=== PATIENT | male | born 1945 | race Caucasian/White ===

== ENCOUNTER 2016-11-11 07:21 | Observation (INO) | payer MEDICARE, MEDICAID ==
[~2016-11-11] VITALS: Ht 172.7 cm; Wt 78.7 kg
[2016-11-11] VITALS (9 sets, daily range): BP systolic 116–148; BP diastolic 62–75
[~2016-11-11 07:21] MED LIST: ALBUTEROL-200 PUFFS/ IH; BACTROBAN2% TP; CIPRO 500MG TA500 MG PO; CIPRO500 MG PO; CYCLOBENZAPRINE10 MG PO; D3-55000 IU PO; FLAGYL500 MG PO; FUROSEMIDE 20MG20 MG PO; HCTZ/LISINOPRIL1 TA3 PO; HYDROCHLOROTHIA50 MG PO; HYDROCODONE BI473 ML PO; KEFLEX 500MG.500 MG PO; KEPPRA 500 MG500 MG PO; LEVAQUIN500 MG PO; LIPITOR10 MG PO; LISINOPRIL 20MG20 MG PO; LISINOPRIL/HCTZ PO; LISINOPRIL/HCTZ1 TA3 PO; METFORMIN500 MG PO; MULTI VITAMINS1 TA1 PO; NORCO1 TAB PO; SEPTRA DS 800 M1 TAB PO; TAMSULOSIN HCL0.4 MG PO
[2016-11-11 07:59] LABS: BUN 21 mg/dL (7-18)
[2016-11-11 08:01] LABS: GFR (ESTIMATED) 46 ML/MIN (>60)
[2016-11-11 08:04] LABS: LYMPH # 2.7 K/mm3 (0.7-4.5); LYMPH % 23.4 % (10-50)
[2016-11-11 08:05] LABS: HEMOGLOBIN 13.8 g/dL (14.1-18.0)
--- NOTE | 2016-11-11 11:06 | HISTORY AND PHYSICAL REPORT ---
History and Physical Demographics Admission date: 11/11/16 Chief Complaint: History of CKD, s/p procedure with high contrast use, admit for IVF Primary Diagnosis: CAD RISK FACTORS, ABN CAMELIA Allergies: Coded Allergies: baclofen (Severe, SWELLING 11/11/16) History of present illness: 71 yo white male admitted post procedure (3 vessel CAD with multivessel stenting with ANGEL) with high amount of contrast used during the procedure. Patient has a history of chronic kidney disease and diabetes and is being admitted for IV fluids to protect the patient's kidney functions. Medical history Family history: Family Hx Insignificant No Immunization history: DT/Tetanus > 10 Years Ago Flu 2015-FSN Pneumonia Received In Past TB Test in last year No Other history: CAD? No Angina: No [place]: No Hypertension? Yes Hyperlipidemia? Yes CHF? No DVT? No PE? No COPD? No Asthma? No Anemia? No GERD? No Gastric ulcers? No GI Bleed? No Hernia? No Thyroid Problems? No Hypothyroidism? No CVA? No Seizures? Yes Diabetes? Yes Insulin Dependent: No Insulin Pump: No Home FSBS? No Renal Insuffiency? No UTI? No Stones? No BPH? Yes GB Disease: No Nephritic Syndrome? No Asplenia? No Hepatitis? No Sickle Cell Disease? No Arthritis? Yes Migraines? No Cataracts? Yes Glaucoma? No MRSA? No HIV? No TB? No Anxiety? No Depression? No Cancer? No Surgical history: Previous Surgery?Y SPINAL SURGERY CATARACTS R EYE SCAR TISSUE REMOVAL L EYE CATARACT TO LEFT Current home meds: Reported Medications Furosemide (Furosemide) 20 MG PO Q48H #30 TAB Glimepiride (Amaryl) 1 MG PO DAILY Atorvastatin Calcium (Lipitor 10MG) 20 MG PO QHS Cyclobenzaprine Hcl (Cyclobenzaprine 10MG) 10 MG PO BID Levetiracetam (Keppra 500 Mg Tablet) 500 MG PO BID Metformin HCL (Metformin) 1,000 MG PO BID CHOLECALCIFEROL (VITAMIN D3) (Vitamin D3) 1,000 IU PO DAILY MULTIVITAMIN (One Daily Multivitamin) 1 TAB PO DAILY MISCELLANEOUS (UNKNOWN MEDICATION) 1 AMANUEL TP 3 MONTHS Albuterol (Albuterol-Hfa Inhaler) 1 PUFF IH Q4HP PRN BREATHNING HYDROCODONE/ACETAMINOPHEN (Anderson 7.5-325 Tablet) 1 TAB PO Q8HP PRN SHOULDER PAIN LISINOPRIL/HYDROCHLOROTHIAZIDE (Lisinopril-Hctz 20-12.5 MG Tab) 1 TAB PO BID #60 TAMSULOSIN HCL (Tamsulosin HCl) 0.4 MG PO DAILY #30 Social history Smoking history: Tobacco Yes Type Cigarettes Packs/day 1 1/2 - 2 Packs Alcohol: Alcohol: No History of drug use: Drug Use? No Review of systems Constitutional: Positive for: weak. Cardiovascular: Positive for: BOLDEN. No: chest pain. Respiratory: Positive for: dyspnea on exertion. Mussculoskeletal: Positive for: extremity pain. Psychiatric: No: agitation, anxious. Physical exam: Lab data for last 24 hours: Laboratory Tests 11/11/16 0745: Sodium 138, Potassium 3.9, Chloride 102, Carbon Dioxide 29, BUN 21 H, Creatinine 1.5 H, Estimated GFR (MDRD) 46, Glucose 102, Calcium 9.2, WBC 11.7 H, RBC 4.12 L, Hgb 13.8 L, Hct 41.3 L, MCV 100.1 H, RDW 13.6, Plt Count 288, MPV 6.3 L, Gran % 67.3, Gran # 7.9, Lymphocytes % 23.4, Monocytes % 6.4, Eosinophils % 2.4, Basophils % 0.4, Lymphocytes # 2.7, Monocytes # 0.8, Eosinophils # 0.3, Basophils # 0.1, PUBS MCHC 33.4, MCH 33.4 H Addmission vital signs: 1ST Vital Signs Result Date Time Pulse Ox 99 11/11 0809 B/P 158/88 11/11 0809 Temp 97.6 11/11 0809 Pulse 84 11/11 0809 Resp 20 11/11 0809 O2 Delivery OXYGEN 11/11 1031 Exam: General appearance: alert, awake, no acute distress Cardiovascular: regular rate & rhythm Respiratory: clear to auscultation Extremities: moves all Neuro: alert, intact, oriented Assessment and Plan: Problem List 1. CAD (coronary artery disease) 2. Cardiomyopathy 3. PAD (peripheral artery disease) 4. CKD (chronic kidney disease) stage 3, GFR 30-59 ml/min 5. Diabetes 6. Hypertension 7. Hyperlipidemia 8. Tobacco dependence Plan: 1. Admit for IVF post procedure 2. Continue home meds and DAPT. 3. BMP in AM at 0810 Plan: 1. Admit for IVF post procedure 2. Continue home meds and DAPT. 3. BMP in AM
--- NOTE | 2016-11-11 11:19 | RADIOLOGY REPORT PS360 ---
CARDIAC CATHETERIZATION DATE OF CATHETERIZATION:11/11/2016 9:31 AM PROCEDURES: 1. Left heart catheterization 2. Left ventriculogram 3. Selective coronary angiogram 4. Drug-eluting stent deployment to the mid LAD 5. Drug-eluting stent deployment to the mid circumflex artery 6. Drug-eluting stent deployment to the mid and distal right coronary artery 7. Bilateral selective renal angiogram 8. Catheter placement in the left superficial femoral artery 9. Left superficial femoral artery angiography with runoff to the foot INDICATION FOR TEST: 1. Coronary artery disease 2. [place] class III claudication 3. Peripheral artery disease 4. Abnormal ankle-brachial index 0.6 left side 5. Chronic renal failure creatinine 1.5 6. Hypertension 7. High pretest likelihood for renal artery stenosis Informed consent was obtained prior to the procedure. COMPLICATIONS: None ESTIMATED BLOOD LOSS: Less than 10 ml. Clinical history: 71-year-old gentleman referred for evaluation of severe peripheral artery disease. Patient had a highly abnormal ankle-brachial index measured 0.6 on the left leg and was experiencing [place] class III claudication. Patient has been long-term diabetic and has smoked for nearly 60 years. Because of patient's significant claudication he is unable to perform any physical activity. He describes having significant shortness of breath with very little activity as well as having intermittent heaviness or discomfort in his chest which would come and go at rest without precipitation. Given patient's age diabetes tobacco usage abnormal ankle-brachial index the likelihood for severe coronary artery disease was quite high. A stress test would not be appropriate in this patient with such high pretest likelihood for coronary disease. Furthermore 0.6 ankle-brachial index portends a very high 5 year cardiovascular mortality. Because of the composite dilation of medical problems it was decided to proceed with coronary angiography prior to planned bilateral runoff. TECHNIQUE: One percent lidocaine was used to anesthetize the right groin. The right femoral artery was accessed via the Seldinger technique. A 4 [place] sheath was placed in the right femoral artery and over a 3 J-wire a JL 4 JR4 catheter were used to perform left heart catheterization left ventriculogram and selective coronary angiography. Following the diagnostic angiogram 60 mg of Effient was given orally on the table along with 7000 units of heparin intravenously. An E BU 3.75 guide catheter was placed in the left main artery and a BMW wire was used to traverse the stenosis in the mid LAD. 2.5 x 12 mm balloon was used to predilate the stenosis and a 2.5 x 18 mm resolute stent was deployed at 20 katerin in the mid LAD. Repeat angiography demonstrated there was significant disease distally therefore an additional 2.5 x 22 mm resolute stent was deployed at 16 katerin in the mid LAD. The balloon was brought back between the 2 stents and deployed at 22 katerin to mesh the 2 stents to gather. Following this the BMW wire was pulled back and placed into the circumflex artery are once again a 2 mm balloon was used to predilate the stenosis. Following this a 2.25 x 26 mm resolute stent was deployed in the proximal obtuse marginal artery extending into the mid segment at 20 katerin. Excellent angiographic results were obtained after the drug-eluting stent deployment. Following this the JR4 catheter was used to intubate the right coronary artery and a BMW wire was placed in the distal right coronary artery. Predilatation using a 2 mm x 30 mm balloon was used and deployed at 20 katerin in the mid right coronary artery into the distal segment. A 2.25 x 30 mm resolute stent was placed in the distal right coronary artery and deployed at 20 katerin. An additional 3 mm x 34 mm resolute stent was placed proximal to this yet still overlapping the first stent. This was deployed at 18 katerin. After the procedure there was still an area where the 2 stents met where post dilatation was required. Because of this tight lesion a 2 mm x 10 mm balloon was deployed at 22 katerin and then upsized to an additional 2.5 x 12 mm noncompliant balloon deployed at 24 katerin followed by a 2.75 x 12 mm noncompliant balloon deployed at 24 katerin. All of these noncompliant high inflation balloons still did not reduce the stenosis. Finally a 3 mm x 12 mm noncompliant balloon was taken at 24 katerin and after 1 minute the lesion finding the reduced during excellent angiographic results. The same balloon was then brought back and deployed at 24 katerin in the mid right coronary artery. The wire was removed and 800 mcg of intracoronary nitroglycerin was administered. Angiography demonstrated wide patency of the right coronary artery with excellent transitioning distally and proximally. SANTIAGO-3 flow was present in the LAD circumflex artery and right coronary artery before and after the procedure. Following this bilateral selective renal angiography was performed due to patient's hypertension chronic renal failure and severe three-vessel coronary artery disease combined with severe peripheral artery disease. Patient had a high pretest likelihood for renal artery stenosis therefore it was clinically appropriate to perform bilateral renal angiography at the time of this procedure. This JR4 catheter was used to selectively intubate each renal artery. The JR4 catheter was placed in the left common iliac artery and an advantage wire was advanced and fluoroscopic guidance into the left superficial femoral artery. The JR4 catheter was advanced into the proximal segment of the SFA. Patient was known to have a +2 femoral pulse in the left groin therefore the likelihood of significant iliofemoral disease was quite low and I was confident His disease was confined primarily to the superficial femoral artery. 16 cc of contrast was injected over 4 seconds performing left SFA angiography with runoff to the left foot. At the end of the procedure the apparatus was removed the groin was reprepped closure changed sheath was removed good hemostasis was achieved using Perclose device H was transferred to the postop holding area in stable condition with the closing ACT of 329 seconds ANGIOGRAPHIC RESULTS: 1. The left main artery has an ostial 20% nonflow limiting stenosis 2. The left anterior descending artery has proximal 10-20% stenoses followed by a focal 90% stenosis in the mid LAD segment followed by additional 50% stenoses. The first diagonal artery is a large vessel and has a mid vessel focal 70-80% stenosis 3. The circumflex artery appears to be a dominant vessel. The first 2 obtuse marginal arteries are small arteries and clinically insignificant. The third obtuse marginal artery has a proximal 90% stenosis followed by additional 50% mid vessel stenoses. The fourth obtuse marginal artery is a large vessel and is ostially occluded there are scant left to left collaterals distally 4. The right coronary artery is a nondominant yet still large vessel which has mid vessel complex 50-90% stenoses followed by an additional 80% calcified stenosis followed by additional distal 80% calcified stenoses 5. The SOUZA ventriculogram reveals mildly reduced ejection fraction estimated at 50%. There is an area of apical hypokinesis with small aneurysmal dilatation 6. The left ventricular end-diastolic pressure 10 mmHg 7. The left renal artery is singular and normal 8. The right renal artery singular and normal 9. The left iliofemoral artery was not angiographically evaluated however patient has bounding plus two left femoral pulses 10. The left profunda femoris artery is normal while the left superficial femoral artery is a small caliber vessel and has proximal 50% stenosis followed by a focal 90% stenosis followed by long mid vessel 70-80% complex stenoses as the SFA enters Ric's canal. The popliteal artery has mild atheromatous plaque and gives rise to the anterior tibialis artery and peroneal artery. Both arteries supply the foot while the left posterior tibialis artery is occluded. IMPRESSION: 1. Critical three-vessel coronary artery disease as described above 2. History of myocardial infarction involving the large fourth obtuse marginal artery off the dominant circumflex artery with chronic subtotal occlusion of the vessel 3. Successful stenting of the mid LAD critical disease reduced to 0% with 2 drug-eluting stents 4. Successful stenting of the proximal to mid third obtuse marginal artery off the dominant circumflex artery severe disease reduced to 0% with 1 drug-eluting stent 5. Successful stenting of the mid and distal large nondominant right coronary artery severe disease reduced to 0% with 2 drug-eluting stents 6. Normal renal arteries 7. Presumed patent left common iliac external iliac and left common femoral artery based on +2 pulses in the left femoral artery 8. Severe left superficial femoral artery disease with 2 vessel runoff below the knee from the anterior tibialis artery and peroneal artery with a chronically occluded posterior tibialis artery PLAN: 1. Effient and aspirin 2. LDL less than 70 3. Tobacco cessation 4. Tight control of diabetes 5. Patient has complex disease and underwent a complex intervention. Because of his end organ disease history of myocardial infarction chronic renal failure diabetes peripheral artery disease I believe this gentleman should be admitted to the hospital with close telemetry monitoring and IV fluids overnight in order to reduce contrast probably. 6. Chemistry panel will need to be checked in the morning 7. Patient will be brought back to [facility] in 2 weeks and will undergo left superficial femoral artery atherectomy for his [place] class III claudication
[2016-11-11] MEDS ORDERED: AMARYL1 M1 PO (15:27)
[2016-11-12] VITALS (9 sets, daily range): BP systolic 106–128; BP diastolic 51–73
--- NOTE | 2016-11-12 07:24 | PHARMACY CLINIC NOTE ---
Patient Demographics Patient Demographics Admission date: 11/11/16 Date: 11/12/16 Time: 07 Allergies Coded Allergies: baclofen (Severe, SWELLING 11/11/16) HEIGHT- FT: 5 IN: 8.00 K.671 VTE General Information Labs: Laboratory Tests 11/11 0745 Hematology Hgb (14.1 - 18.0 g/dL) 13.8 L Hct (42.0 - 52.0 %) 41.3 L Plt Count (142 - 424 K/mm3) 288 Disclaimer The following section includes nursing documentation that has been pulled in for pharmacy review. Patient's VTE score: 3 Patient's VTE Risk: LOW RISK VTE prophylaxis NQF [id number] VTE prophylaxis ordered? Yes Type of prophylaxis/treatment: EDDIE at 0723
--- NOTE | 2016-11-12 08:21 | ACUTE CARE PROGRESS NOTE (QUA) ---
Progress Notes Subjective Date 11/12/16 Time 0811 Note 71 yo WM in chair in NAD. No chest pains. Dr. Richard stopped by to see the patient. Objective Findings Last VS-Temp:97.7 B/P:125/73 Pulse:67 Resp:20 SaO2:97 ROOM AIR Last weight lbs:173 oz:7 K.671 Method:Bed Scales Exam General appearance: alert, awake, no acute distress Cardiovascular: regular rate & rhythm, extra beats Respiratory: clear to auscultation, good air movement Extremities: Bruising noted on arms and hands in various stages of healing. No LE edema. Neuro: alert, intact, oriented Reviewed: medications, vital signs, lab results Assessment/Plan Problem List 1. CAD (coronary artery disease) Assessment/Plan: No chest pains. Multivessel stenting yesterday with DAPT started. Qualifiers: Coronary Disease-Associated Artery/Lesion type: [place] artery [place] vs. transplanted heart: [place] heart Associated angina: with unstable angina Qualified Code: I25.110 - Atherosclerotic heart disease of [place] coronary artery with unstable angina pectoris 2. Cardiomyopathy Assessment/Plan: EF 50% with mild wall motion abnormality due to remote [place]. Qualifiers: Cardiomyopathy type: ischemic Qualified Code: I25.5 - Ischemic cardiomyopathy 3. PAD (peripheral artery disease) Assessment/Plan: Left SFA disease with plans for intervention in 2 wks. 4. CKD (chronic kidney disease) stage 3, GFR 30-59 ml/min 5. Hypertension Qualifiers: Hypertension type: essential hypertension Qualified Code: I10 - Essential ( primary) hypertension 6. Hyperlipidemia Qualifiers: Hyperlipidemia type: mixed hyperlipidemia Qualified Code: E78.2 - Mixed hyperlipidemia 7. Diabetes Qualifiers: Diabetes mellitus type: type 2 Diabetes mellitus complication status: with kidney complications Diabetes mellitus complication detail: with chronic kidney disease Diabetes mellitus senior care insulin use: without senior care use Chronic kidney disease stage: stage 3 (moderate) Qualified Code: E11.22 - Type 2 diabetes mellitus with diabetic chronic kidney disease Patient condition Stable Plan: Home meds plus ASA/Effient. F/U in one week. F/U up with Dr. Richard after PAD stenting. This inpt stay is expected to cross 2 MNs from start of care Yes at 0820
--- NOTE | 2016-11-12 08:21 | ACUTE CARE PROGRESS NOTE (QUA) ---
Progress Notes Subjective Date 11/12/16 Time 0811 Note 71 yo WM in chair in NAD. No chest pains. Dr. Richard stopped by to see the patient. Objective Findings Last VS-Temp:97.7 B/P:125/73 Pulse:67 Resp:20 SaO2:97 ROOM AIR Last weight lbs:173 oz:7 K.671 Method:Bed Scales Exam General appearance: alert, awake, no acute distress Cardiovascular: regular rate & rhythm, extra beats Respiratory: clear to auscultation, good air movement Extremities: Bruising noted on arms and hands in various stages of healing. No LE edema. Neuro: alert, intact, oriented Reviewed: medications, vital signs, lab results Assessment/Plan Problem List 1. CAD (coronary artery disease) Assessment/Plan: No chest pains. Multivessel stenting yesterday with DAPT started. Qualifiers: Coronary Disease-Associated Artery/Lesion type: [place] artery [place] vs. transplanted heart: [place] heart Associated angina: with unstable angina Qualified Code: I25.110 - Atherosclerotic heart disease of [place] coronary artery with unstable angina pectoris 2. Cardiomyopathy Assessment/Plan: EF 50% with mild wall motion abnormality due to remote [place]. Qualifiers: Cardiomyopathy type: ischemic Qualified Code: I25.5 - Ischemic cardiomyopathy 3. PAD (peripheral artery disease) Assessment/Plan: Left SFA disease with plans for intervention in 2 wks. 4. CKD (chronic kidney disease) stage 3, GFR 30-59 ml/min 5. Hypertension Qualifiers: Hypertension type: essential hypertension Qualified Code: I10 - Essential ( primary) hypertension 6. Hyperlipidemia Qualifiers: Hyperlipidemia type: mixed hyperlipidemia Qualified Code: E78.2 - Mixed hyperlipidemia 7. Diabetes Qualifiers: Diabetes mellitus type: type 2 Diabetes mellitus complication status: with kidney complications Diabetes mellitus complication detail: with chronic kidney disease Diabetes mellitus halfway insulin use: without halfway use Chronic kidney disease stage: stage 3 (moderate) Qualified Code: E11.22 - Type 2 diabetes mellitus with diabetic chronic kidney disease Patient condition Stable Plan: Home meds plus ASA/Effient. F/U in one week. F/U up with Dr. Richard after PAD stenting. This inpt stay is expected to cross 2 MNs from start of care Yes at 0820
--- NOTE | 2016-11-12 08:23 | DISCHARGE SUMMARY STANDARD ---
Demographics Admit date: 11/11/16 Discharge date: 11/12/16 History of present illness History of present illness 71 yo white male admitted post procedure (3 vessel CAD with multivessel stenting with ANGEL) with high amount of contrast used during the procedure. Patient has a history of chronic kidney disease and diabetes and is being admitted for IV fluids to protect the patient's kidney functions. Hospital Course Hospital Course: 81-year-old white male with coronary disease, peripheral artery disease, diabetes mellitus and chronic kidney disease was admitted post procedure due to high amount of contrast used during cardiac cath and stenting. Patient was given IV fluids overnight. He had complaints of chest pain or shortness of breath next morning. Renal status stable today. Patient will be discharged home on home medications plus she had the addition of Effient along with his aspirin. He will follow-up in one week for scheduling of his peripheral artery disease disease intervention in 2 weeks. Discharge diagnoses Problem List 1. CAD (coronary artery disease) 2. Cardiomyopathy 3. PAD (peripheral artery disease) 4. CKD (chronic kidney disease) stage 3, GFR 30-59 ml/min 5. Hypertension 6. Hyperlipidemia 7. Diabetes Medications Medications: Discharge meds are as noted. Follow up Follow up in office in: 4 DAYS with: Ron Love MD at 0838
[2016-11-12] MEDS ORDERED: LIPITOR40 M1 PO (08:30)
[2016-11-12] MEDS ORDERED: EFFIENT10 M2 PO (08:32)
[2016-11-30] MEDS ORDERED: ASPIRIN 81MG TA81 MG PO (04:01)
[2016-11-30] MEDS ORDERED: TRAMADOL 50MG T50 M1 PO (04:02)
[2016-11-30] MEDS ORDERED: KEFLEX 500MG.500 MG PO (08:52)
[2016-11-30] MEDS ORDERED: MIRALAX17 GM PO (08:52)
== END 2016-11-12 10:16 | disposition home or self-care (01) ==
LOC: CATHLAB 07:21 → 2ND 10:38 → CATHLAB 11-12 09:45 → 2ND 11-12 10:16
PROVIDERS: Internal Medicine
PROC: B2151ZZ Fluoroscopy of Left Heart using Low Osmolar Contrast (ICD-10-PCS; 2016-11-11)
PROC: 027236Z Dilation of Coronary Artery, Three Arteries with Three Drug-eluting Intraluminal Devices, Percutaneous Approach (ICD-10-PCS; 2016-11-11)
PROC: B4181ZZ Fluoroscopy of Bilateral Renal Arteries using Low Osmolar Contrast (ICD-10-PCS; 2016-11-11)
PROC: 047L3ZZ Dilation of Left Femoral Artery, Percutaneous Approach (ICD-10-PCS; 2016-11-11)
PROC: B41G1ZZ Fluoroscopy of Left Lower Extremity Arteries using Low Osmolar Contrast (ICD-10-PCS; 2016-11-11)
PROC: 4A023N7 Measurement of Cardiac Sampling and Pressure, Left Heart, Percutaneous Approach (ICD-10-PCS; principal; 2016-11-11 09:30)
PROC: B2111ZZ Fluoroscopy of Multiple Coronary Arteries using Low Osmolar Contrast (ICD-10-PCS; 2016-11-11 09:30)
DX: I25.110 Atherosclerotic heart disease of native coronary artery with unstable angina pectoris (principal); I70.212 Atherosclerosis of native arteries of extremities with intermittent claudication, left leg; I25.5 Ischemic cardiomyopathy; Z72.0 Tobacco use; I25.2 Old myocardial infarction; E11.22 Type 2 diabetes mellitus with diabetic chronic kidney disease; N18.3 Chronic kidney disease, stage 3 (moderate); E78.2 Mixed hyperlipidemia
CPT/HCPCS: C1725; C1760; C1769; C1876; C1894; G0378; J1644; Q9966; Q9967

== ENCOUNTER → 2016-12-31 | Outpatient (CLI) | payer MEDICARE, MEDICAID ==
[~2016-12-31] MED LIST changes: +AMARYL1 M1 PO; +ASPIRIN 81MG TA81 MG PO; +EFFIENT10 M2 PO; +LIPITOR40 M1 PO; +MIRALAX17 GM PO; +TRAMADOL 50MG T50 M1 PO
[2016-12-31 10:58] LABS: BILIRUBIN, INDIRECT 0.17 mg/dL (0-0.9)
== END ==
LOC: LAB 09:57
PROVIDERS: Internal Medicine
DX: I25.10 Atherosclerotic heart disease of native coronary artery without angina pectoris (principal); I10 Essential (primary) hypertension; I73.9 Peripheral vascular disease, unspecified

== ENCOUNTER 2017-06-01 01:29 | Emergency (ER) | payer MEDICARE ==
[~2017-06-01] VITALS: Ht 172.7 cm; Wt 83.9 kg
[~2017-06-01 01:29] MED LIST changes: +CEPHALEXIN500 MG PO; +FLEXERIL10 MG PO; +LASIX 20MG. TAB20 MG PO; +LINZESS145 MCG PO
[2017-06-01 02:09] LABS: HEMOGLOBIN 11.5 g/dL (14.1-18.0)
[2017-06-01 02:10] LABS: LYMPH % 28.3 % (10-50)
[2017-06-01 02:11] LABS: LYMPH # 2.6 K/mm3 (0.7-4.5)
[2017-06-01 02:35] LABS: URINE BILIRUBIN - DIPSTICK NEGATIVE (NEG); URINE BLOOD TRACE-LYSED (NEG)
--- NOTE | 2017-06-01 03:44 | Emergency Room Report ---
History of Present Illness Time Seen by MD Jaffe Presenting Problem in Triage Pt arrived:Wheelchair Presenting Problem:has diverticulitis and chronic constipation. started with bloating and soa associated with rigid abdominal distension. 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 N Clinical Suspician of Infection? N Mental Status: 1 - Regular (Normal Baseline) Sepsis Risk:Low Sepsis Risk Have you (or family members/close friends) recently traveled outside the [place]? N If Yes, where/when: Have you had exposure to infectious disease within the past month? N TB? Other? Specify: Source patient, RN notes reviewed, family, old records Exam Limitations no limitations Comment pt with abd distention and pain w/o fever or vomiting and no diarrhea Cardiac Chest Pain Chest pain indicative of cardiac No Timing/Duration this evening Severity moderate ALLERGIES Coded Allergies: baclofen (Severe, SWELLING 11/11/16) gabapentin (From NEURONTIN) (Mild, 11/30/16) metformin (Mild, 11/30/16) morphine (Mild, 11/30/16) Home Medications Active Scripts CEPHALEXIN MONOHYDRATE (Cephalexin 500MG Capsule) 500 MG PO QID #40 CAPSULE Prov: 03/19/17 Atorvastatin Calcium (Lipitor 40MG) 80 MG PO QHS #30 TAB Ref 5 Prov: 11/12/16 Prasugrel HCl (Effient) 10 MG PO DAILY #30 TAB Ref 6 Prov: 11/12/16 Reported Medications Furosemide (Furosemide) 20 MG PO Q48H #30 TAB Glimepiride (Amaryl) 1 MG PO DAILY Cyclobenzaprine Hcl (Cyclobenzaprine 10MG) 10 MG PO BID Levetiracetam (Keppra 500 Mg Tablet) 500 MG PO BID CHOLECALCIFEROL (VITAMIN D3) (Vitamin D3) 1,000 IU PO DAILY MULTIVITAMIN (One Daily Multivitamin) 1 TAB PO DAILY Albuterol (Albuterol-Hfa Inhaler) 1 PUFF IH Q4HP PRN BREATHNING HYDROCODONE/ACETAMINOPHEN (Springs 7.5-325 Tablet) 1 TAB PO Q8HP PRN SHOULDER PAIN LISINOPRIL/HYDROCHLOROTHIAZIDE (Lisinopril-Hctz 20-12.5 MG Tab) 1 TAB PO BID #60 ASPIRIN (Aspirin) 81 MG PO DAILY TRAMADOL HCL (Tramadol) 50 MG PO PRN PRN PAIN Cyclobenzaprine Hcl (Flexeril) 5 MG PO BID Furosemide (Lasix 20MG) 20 MG PO BID Linaclotide (Linzess 145MCG) 145 MCG PO DAILY TAMSULOSIN HCL (Tamsulosin HCl) 0.4 MG PO DAILY #30 History Medical History General CAD? Yes Angina: No ME: Yes Hypertension? Yes Hyperlipidemia? Yes CHF? No DVT? No PE? No COPD? Yes Asthma? No Anemia? No GERD? No Gastric ulcers? No GI Bleed? No Hernia? No Thyroid Problems? No Hypothyroidism? No CVA? No Seizures? Yes Diabetes? Yes Insulin Dependent: No Insulin Pump: No Home FSBS? No Renal Insuffiency? No End Stage Renal Disease? No UTI? No Stones? No BPH? Yes GB Disease: No Nephritic Syndrome? No Asplenia? No Hepatitis? No Sickle Cell Disease? No Arthritis? Yes Migraines? No Cataracts? Yes Glaucoma? No MRSA? No HIV? No TB? No Anxiety? No Depression? No Cancer? No More? No Immunization Hx Ped.Immunizations UTD No DT/Tetanus > 10 Years Ago Flu 2015-17FSN Pneumonia Received In Past Surgical Hx Previous Surgery?Y SPINAL SURGERY CATARACTS R EYE SCAR TISSUE REMOVAL L EYE CATARACT TO LEFT CARDIAC CATH 5 STENTS IN HEART 4 STENTS IN LEFT THIGH Family History Family Hx Diabetes Yes CAD Yes Hypertension Yes Hyperlipidemia Yes Cancer Yes TB No Social History Smoking Hx Smoker: Former Smoker Tobacco: No Type Cigarettes Packs/day < 1 Pack Alcohol Alcohol: No Drugs none Review of Systems All Other Systems Reviewed and Negative Constitutional denies fever Eyes denies blurred vision ENT denies: ear pain, epistaxis, throat pain. Respiratory denies cough, denies shortness of breath Cardiovascular denies chest pain, denies syncope Gastrointestinal see HPI, abdominal pain, denies diarrhea, denies vomiting, other Genitourinary denies: dysuria, frequency, hesitancy, hematuria. Musculoskeletal denies back pain, denies joint pain, denies neck pain Skin denies rash Psychiatric/Neurological denies headache, denies seizure Physical Exam Vital Signs Vital Signs Date Time Temp Pulse Resp B/P Pulse O2 O2 Flow FiO2 Ox Delivery Rate 06/01 0335 73 22 135/68 95 06/01 0302 97.4 71 22 130/74 96 06/01 0133 97.7 86 16 180/86 96 - WBC >12,000 or <4,000 or 10% bands? 2 or more SIRS Criteria Met? B/P:135/68 MAP:117 Creatinine >2.0? UA output<0.5ml/kg/hr for 2 hrs? Platelet count >100,000? Lactate >2.0mmol/1? INR >1.2 or PTT > than 60 sec? Evidence of Organ Dysfunction? Provider documented clinical suspician of infection? N Sepsis Criteria Count: 0 Sepsis Risk: Low Sepsis Risk General Appearance no apparent distress Eye Exam - bilateral eye PERRL, bilateral eye EOMI Ear, Nose, Throat normal ENT inspection Neck non-tender Respiratory Status No: respiratory distress. Lung Sounds bilateral: decreased breath sounds. 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 No Results/Orders Laboratory Tests 06/01/17 0230: Urine Color YELLOW, Urine Appearance CLEAR, Urine pH 7.0, Ur Specific Mckinnon 1.010, Urine Protein NEGATIVE, Urine Ketones NEGATIVE, Urine Blood TRACE-LYSED, Urine Nitrate NEGATIVE, Urine Bilirubin NEGATIVE, Urine Urobilinogen 0.2, Ur Leukocyte Esterase TRACE H, Urine RBC 3-5, Urine WBC 3-5, Ur Squamous Epith Cells 3-5, Amorphous Sediment OCC, Urine Bacteria 1+, Urine Glucose NEGATIVE 06/01/17 0145: Sodium 136, Potassium 3.8, Chloride 97 L, Carbon Dioxide 30, BUN 30 H, Creatinine 2.0 H, Estimated Creat Clear 39 L, Estimated GFR (MDRD) 33, Glucose 101, Calcium 9.2, Total Bilirubin 0.3, AST 15, ALT 41, Alkaline Phosphatase 92, Troponin I 0.02, Total Protein 7.1, Albumin 3.8, Globulin 3.3 H, Albumin/ Globulin Ratio 1.2, Amylase 61, Lipase 220, WBC 9.3, RBC 3.59 L, Hgb 11.5 L, Hct 34.4 L, MCV 95.7, RDW 14.3, Plt Count 334, MPV 7.7, Gran % 55.8, Gran # 5.2 , Lymphocytes % 28.3, Monocytes % 11.5 H, Eosinophils % 3.7, Basophils % 0.8, Lymphocytes # 2.6, Monocytes # 1.1 H, Eosinophils # 0.3, Basophils # 0.1, PUBS MCHC 33.5, MCH 32.1 H Current Medication Orders Sig/Vnicent Start time Last Medication Dose Route Stop Time Status Admin Sodium Chloride 10 ML PRN PRN 06/01 145 AC IV 06/02 143 Orders Procedure Date/time Status DIET-NOTHING BY MOUTH 06/[address] ABD & PELVIS W/O CONTRAST 06/[address] SCAN REQ 06/01 144 Complete CHEST-AP VIEW ONLY 06/01 144 Active IV SALINE LOCK 06/01 144 Active URINALYSIS/COMPLETE 06/01 144 Complete TROPONIN I 06/01 144 Complete LIPASE 06/01 144 Complete COMPLETE METABOLIC PANEL 06/01 144 Complete CBC WITH AUTO DIFF 06/01 144 Complete AMYLASE 06/01 144 Complete XRAY/CT/US XRAY/CT/US 1 CT abdomen, pelvis CT interpretation by discussed w/radiologist Time results known: 034 CT Results normal/NAD XRAY/CT/US 2 XRAY chest XR interpretation by reviewed by me Xray Results abnormal (cm) Departure Departure Time of Disposition 348 Disposition DC Home or Self Care(routine) Clinical Impression Primary Impression: Abdominal pain Qualifiers: Abdominal location: generalized Qualified Code: R10.84 - Generalized abdominal pain Secondary Impressions: Renal insufficiency Condition STABLE Referrals Kendall Richard MD (Family) Patient Instructions DI for Abdominal Pain-Adult Additional Instructions fluids and see pcp for follow up Discharge Counseling Counseled pt/family regarding diagnosis, test results, medications/RX, follow up needs ED Critical Care Critical Care No at 0350
[2017-06-01 04:05] VITALS: BP 151/84
--- NOTE | 2017-06-02 05:03 | RADIOLOGY REPORT PS360 ---
CHEST-AP VIEW ONLY HISTORY: sobdyspnea Patient Age: 71 years: Male Ordering Physician: Chadwick Newell MD TECHNIQUE: AP portable upright COMPARISON :12/14/2016 and 11/30/2016 CXR FINDINGS Stable chest with no acute findings. No significant interval change. Borderline to mild cardiomegaly. Normal pulmonary vascularity threat monitoring analyst leads in place. Previous cyst cervical fusion lower C-spine. Chest wall intact IMPRESSION: Stable chest with nothing definitely acute Borderline/mild cardiomegaly
--- NOTE | 2017-06-02 05:03 | RADIOLOGY REPORT PS360 ---
CHEST-AP VIEW ONLY HISTORY: sobdyspnea Patient Age: 71 years: Male Ordering Physician: Chadwick Newell MD TECHNIQUE: AP portable upright COMPARISON :12/14/2016 and 11/30/2016 CXR FINDINGS Stable chest with no acute findings. No significant interval change. Borderline to mild cardiomegaly. Normal pulmonary vascularity conveyor monitor leads in place. Previous cyst cervical fusion lower C-spine. Chest wall intact IMPRESSION: Stable chest with nothing definitely acute Borderline/mild cardiomegaly
--- NOTE | 2017-06-02 06:09 | RADIOLOGY REPORT PS360 ---
CT ABD PELVIS W/O CONTRAST HISTORY: ABD PAIN generalized previous coronary and peripheral stents Patient Age: 71 years: Male Ordering Physician: Chadwick Newell MD TECHNIQUE: Helical CT scanning performed through the abdomen and pelvis with no oral nor IV contrast. Sagittal coronal reconstruction CT workstation. COMPARISON :Previous CT abdomen pelvis 11/30/2016 FINDINGS Lung bases clear. Coronary artery calcifications. Heart upper normal size Abdomen/pelvis.: lack of oral & IV contrast decreases sensitivity.. Arm at patient patient's side also decreased image resolution detail through the upper abdomen & yield streak artifact Liver. No focal lesions with mild fatty change. Spleen unremarkable. Pancreas unremarkable. Adrenals stable, satisfactory. Kidneys mild stranding about both kidneys overall appearance kidney similar to prior studies. Right kidney: 3 cyst identified. -There is a 3.7 cm benign renal cyst midlower portion right kidney. -Also 2.4 cm cyst at the lower pole right these are seen previously. -With 1.6 cm cyst off lower pole Most likely renal vascular calcifications at the lung medial aspect right kidney as well as left kidney. Rather than nephrolithiasis. Diffuse atherosclerotic calcification aorta and iliac vessels. No aneurysm Left kidney: stable with benign cyst at its anterior aspect 2.3 cm cyst no urinary tract obstruction. Ureters normal in course and caliber. Pelvis. Bladder appears satisfactory. Mild/moderate size prostate with central calcification. No pelvic mass or adenopathy GI tract. No bowel dilatation or obstruction Stomach mildly distended fluid-filled and food stomach. Small bowel normal caliber appears satisfactory appendix appears normal as does terminal ileum. Moderate stool throughout the colon most evident at the rectosigmoid... No free fluid in the abdomen or pelvis. No free air Multilevel degenerative changes lumbar spine. Marginal osteophytes, lumbar spondylosis. There is old possibly congenital fusion at L2/3 level, with multilevel degenerative disc & facet hypertrophy yielding multilevel spinal stenosis most notable L2/3 L3/4 L4/5. IMPRESSION No acute findings abdomen or pelvis. Bilateral renal cysts again noted.
--- OUTSIDE RECORDS SUMMARY | 2017-06-09 12:54 | External Medical Summary Rpt | CCD ---
Author Author , ARNOL AMBROSE Address Unknown Phone [email or web address] Purpose Continuity of Care Document - through 2016
--- OUTSIDE RECORDS SUMMARY | 2017-06-09 12:54 | External Medical Summary Rpt | CCD ---
Author Author , ARNOL Organization ARNOL Address Unknown Phone [email or web address] Immunization Name Date Rout CVX Reac Dose Comm Prov Is Faci e tion ent ider Refu lity Give sed n PPV2 11-1 33 999 Hist D203 No D203 3 0-20 oric 45 45 16 al Info rmat ion - Sour ce Unsp ecif ied Infl 11-1 135 999 Hist D203 No D203 uenz 0-20 oric 45 45 a, 16 al High Info rmat Dose ion - Sour ce Unsp ecif ied
--- OUTSIDE RECORDS SUMMARY | 2017-06-09 12:54 | External Medical Summary Rpt | CCD ---
Author Author , ARNOL AMBROSE Address Unknown Phone [email or web address] Purpose Continuity of Care Document - through 2016
--- OUTSIDE RECORDS SUMMARY | 2017-06-09 12:54 | External Medical Summary Rpt | CCD ---
Author Author , ARNOL Organization ARNOL Address Unknown Phone [email or web address] Immunization Name Date Rout CVX Reac Dose [...]
--- OUTSIDE RECORDS SUMMARY | 2017-06-09 12:54 | External Medical Summary Rpt | CCD ---
Author Author , ARNOL Organization ARNOL Address Unknown Phone [email or web address] Purpose Continuity of Care Document - 01-20-2017 through 2016 Results Labs Lab Lab Date Result Refere Interp Status Commen Order Detail nces retati t Range on Urinalysis dipstick W Reflex Microscopic panel in Urine (06-01-2017 02:30) Amorpho OCC NONE complet us 017 ed sedimen 02:30 t [Presen ce] in Urine sedimen t by Light microsc opy Bacteri 1+ O complet a 017 ed [Presen 02:30 ce] in Urine sedimen t by Light microsc opy Erythro 3-5 0 complet cytes 017 ed [Presen 02:30 ce] in Urine sedimen t by Light microsc opy Epithel 3-5 OCC complet ial 017 ed cells.s 02:30 quamous [Presen ce] in Urine sedimen t by Microsc opy high power field Leukocy 3-5 O complet pool 017 wbc/hpf ed [#/volu 02:30 me] in Urine Urinalysis dipstick W Reflex Microscopic panel in Urine (06-01-2017 02:30) Appeara CLEAR CLEAR complet nce of 017 ed Urine 02:30 Bilirub NEGATIV NEG complet in 017 E ed [Presen 02:30 ce] in Urine by Test strip Erythro TRACE-L NEG complet cytes 017 YSED ed [Presen 02:30 ce] in Urine Color YELLOW YELLOW complet of 017 ed Urine 02:30 Ketones NEGATIV NEG complet 017 E ed [Presen 02:30 ce] in Urine by Automat ed test strip Mucus TRACE NEG Abnorma complet [Presen 017 l ed ce] in 02:30 Urine sedimen t by Light microsc opy Nitrite NEGATIV NEG complet 017 E ed [Presen 02:30 ce] in Urine by Test strip Urobili 0.2 NEG complet nogen 017 ed [Presen 02:30 ce] in Urine by Test strip Urinalysis macro (dipstick) panel in Urine (03-19-2017 12:18) Appeara Clear CLEAR complet nce of 017 ed Urine 12:18 Bilirub NEGATIV NEG complet in 017 E ed [Presen 12:18 ce] in Urine by Test strip Erythro NEGATIV NEG complet cytes 017 E ed [Presen 12:18 ce] in Urine Color YELLOW YELLOW complet of 017 ed Urine 12:18 Ketones NEGATIV NEG complet 017 E ed [Presen 12:18 ce] in Urine by Automat ed test strip Leukocy NEGATIV NEG complet te 017 E ed esteras 12:18 e [Presen ce] in Urine by Automat ed test strip Nitrite NEGATIV NEG complet 017 E ed [Presen 12:18 ce] in Urine by Test strip Urobili 0.2 NEG complet nogen 017 ed [Presen 12:18 ce] in Urine by Test strip
--- OUTSIDE RECORDS SUMMARY | 2017-06-09 12:54 | External Medical Summary Rpt | CCD ---
Author Author , ARNOL Organization ARNOL Address Unknown Phone [email or web address] Purpose Continuity of Care Document - 01-20-2017 [...]
--- OUTSIDE RECORDS SUMMARY | 2017-06-09 12:55 | External Medical Summary Rpt ---
Author Author [facility]N[employer] Pastor, [employer] Organization [employer] Address Unknown Phone Unavailable Results Urinalysis dipstick W Reflex Microscopic panel in Urine Observa Value Referen Units Interpr Notes Date tion ce etation Range Appeara CLEAR CLEAR No No No Jun 01 nce of informa informa informa 2017 Urine tion in tion in tion in 2:30 AM source source source data data data Amorpho OCC NONE No No No Jun 01 us informa informa informa 2017 sedimen tion in tion in tion in 2:30 AM t source source source [Presen data data data ce] in Urine sedimen t by Light microsc opy Bacteri 1+ O No No No Jun 01 a informa informa informa 2016 [Presen tion in tion in tion in 2:30 AM ce] in source source source Urine data data data sedimen t by Light microsc opy Bilirub NEGATIV NEG No No No Jun 01 in E informa informa informa 2016 [Presen tion in tion in tion in 2:30 AM ce] in source source source Urine data data data by Test strip Erythro TRACE-L NEG No No No Jun 01 cytes YSED informa informa informa 2016 [Presen tion in tion in tion in 2:30 AM ce] in source source source Urine data data data Color YELLOW YELLOW No No No Jun 01 of informa informa informa 2017 Urine tion in tion in tion in 2:30 AM source source source data data data Glucose NEG No No No Jun 01 [Mass/vol informati informati informati 2017 2:30 ume] in on in on in on in AM Urine by source source source Test data data data strip Ketones NEGATIV NEG mg/dL No No Jun 01 E informa informa 2016 [Presen tion in tion in 2:30 AM ce] in source source Urine data data by Automat ed test strip Mucus TRACE NEG No Abnorma No Jun 01 [Presen informa l informa 2016 ce] in tion in tion in 2:30 AM Urine source source sedimen data data t by Light microsc opy Nitrite NEGATIV NEG No No No Jun 01 E informa informa informa 2016 [Presen tion in tion in tion in 2:30 AM ce] in source source source Urine data data data by Test strip pH of 5.0 - 8.5 No Normal No Jun 01 Urine informati informati 2016 2:30 on in on in AM source source data data Protein NEG mg/dL No No Jun 01 [Mass/vol informati informati 2016 2:30 ume] in on in on in AM Urine by source source Automated data data test strip Erythro 3-5 0 rbc/hpf No No Jun 01 cytes informa informa 2016 [Presen tion in tion in 2:30 AM ce] in source source Urine data data sedimen t by Light microsc opy Specific 1.005 - No Normal No Jun 01 gravity 1.030 informati informati 2016 2:30 of Urine on in on in AM source source data data Epithel 3-5 OCC #/hpf No No Jun 01 ial informa informa 2017 cells.s tion in tion in 2:30 AM quamous source source data data [Presen ce] in Urine sedimen t by Microsc opy high power field Urobili 0.2 NEG E.U./dL No No Jun 01 nogen informa informa 2016 [Presen tion in tion in 2:30 AM ce] in source source Urine data data by Test strip Leukocy [3 O wbc/hpf No No Jun 01 pool wbc/hpf informa informa 2016 [#/volu ; 5 tion in tion in 2:30 AM me] in wbc/hpf source source Urine ] data data Urinalysis dipstick W Reflex Microscopic panel in Urine Observa Value Referen Units Interpr Notes Date tion ce etation Range Appeara CLEAR CLEAR No No No Jun 01 nce of informa informa informa 2017 Urine tion in tion in tion in 2:30 AM source source source data data data Bilirub NEGATIV NEG No No No Jun 01 in E informa informa informa 2016 [Presen tion in tion in tion in 2:30 AM ce] in source source source Urine data data data by Test strip Erythro TRACE-L NEG No No No Jun 01 cytes YSED informa informa informa 2016 [Presen tion in tion in tion in 2:30 AM ce] in source source source Urine data data data Color YELLOW YELLOW No No No Jun 01 of informa informa informa 2017 Urine tion in tion in tion in 2:30 AM source source source data data data Glucose NEG No No No Jun 01 [Mass/vol informati informati informati 2016 2:30 ume] in on in on in on in AM Urine by source source source Test data data data strip Ketones NEGATIV NEG mg/dL No No Jun 01 E informa informa 2016 [Presen tion in tion in 2:30 AM ce] in source source Urine data data by Automat ed test strip Mucus TRACE NEG No Abnorma No Jun 01 [Presen informa l informa 2016 ce] in tion in tion in 2:30 AM Urine source source sedimen data data t by Light microsc opy Nitrite NEGATIV NEG No No No Jun 01 E informa informa informa 2016 [Presen tion in tion in tion in 2:30 AM ce] in source source source Urine data data data by Test strip pH of 5.0 - 8.5 No Normal No Jun 01 Urine informati informati 2017 2:30 on in on in AM source source data data Protein NEG mg/dL No No Jun 01 [Mass/vol informati informati 2016 2:30 ume] in on in on in AM Urine by source source Automated data data test strip Specific 1.005 - No Normal No Jun 01 gravity 1.030 informati informati 2017 2:30 of Urine on in on in AM source source data data Urobili 0.2 NEG E.U./dL No No Jun 01 nogen informa informa 2016 [Presen tion in tion in 2:30 AM ce] in source source Urine data data by Test strip Amylase [Enzymatic activity/volume] in Serum or Plasma Observa Value Referen Units Interpr Notes Date tion ce etation Range Amylase 25 - 115 U/L Normal No May 4 [Enzymati informati 2017 1:45 c on in AM activity/ source volume] data in Serum or Plasma Comprehensive metabolic 2000 panel in Serum or Plasma Observa Value Referen Units Interpr Notes Date tion ce etation Range Albumin/G 1.1 - 1.8 No Normal No Oct 4 lobulin informati informati 2017 1:45 [Mass on in on in AM ratio] in source source Serum or data data Plasma Albumin 3.4 - 5.0 gm/dL Normal No Oct 4 [Mass/vol informati 2017 1:45 ume] in on in AM Serum or source Plasma data Alkaline 46 - 116 U/L Normal No Oct 4 phosphata informati 2017 1:45 se on in AM [Enzymati source c data activity/ volume] in Serum or Plasma Bilirubin 0.2 - 1.0 mg/dL Normal No Oct 4 .total informati 2017 1:45 [Mass/vol on in AM ume] in source Serum or data Plasma Urea 7 - 18 mg/dL High No Oct 4 nitrogen informati 2017 1:45 [Mass/vol on in AM ume] in source Serum or data Plasma Calcium 8.5 - mg/dL Normal No Oct 4 [Mass/vol 10.1 informati 2017 1:45 ume] in on in AM Serum or source Plasma data Chloride 98 - 107 mmoL/L Low No Oct 4 [Moles/vo informati 2017 1:45 lume] in on in AM Serum or source Plasma data Carbon 21.0 - mmoL/L Normal No Oct 4 dioxide, 32.0 informati 2017 1:45 total on in AM [Moles/vo source lume] in data Serum or Plasma Creatinin 0.70 - mg/dL High No Oct 4 e 1.30 informati 2017 1:45 [Mass/vol on in AM ume] in source Serum or data Plasma Creatinin 50 - 200 ML/MIN Low No Oct 4 e renal informati 2016 1:45 clearance on in AM source predicted data by Cockcroft -Gault formula Estimated >60 ML/MIN No REFERENCE Oct 4 informati RANGE: 2017 1:45 glomerula on in >60 AM r source ML/MIN/1. filtratio data 73 SQUARE n rate METERSIf (GF this patient is -A merican, then multiply theresult by 1.210. Globulin 1.3 - 3.2 gm/dL High No Oct 4 [Mass/vol informati 2017 1:45 ume] in on in AM Serum source data Glucose 74 - 106 mg/dL Normal No Oct 4 [Mass/vol informati 2017 1:45 ume] in on in AM Serum or source Plasma data Potassium 3.5 - 5.1 mmoL/L Normal No Jun [id number] 1:45 [Moles/vo on in AM lume] in source Serum or data Plasma Sodium 136 - 145 mmoL/L Normal No Jun 01 [Moles/vo 2016 1:45 lume] in on in AM Serum or source Plasma data Aspartate 15 - 37 U/L Normal No Jun [id number] 1:45 aminotran on in AM sferase source [Enzymati data c activity/ volume] in Serum or Plasma Alanine 12 - 78 U/L Normal No Jun 01 aminotran 2016 1:45 sferase on in AM [Enzymati source c data activity/ volume] in Serum or Plasma Protein 6.4 - 8.2 gm/dL Normal No Jun 01 [Mass/vol inform2016 1:45 ume] in on in AM Serum or source Plasma data Lipase [Enzymatic activity/volume] in Serum or Plasma Observa Value Referen Units Interpr Notes Date tion ce etation Range Lipase 73 - 393 U/L Normal No Jun 01 [Enzymati inform2016 1:45 c on in AM activity/ source volume] data in Serum or Plasma Troponin I.cardiac [Mass/volume] in Serum or Plasma Observa Value Referen Units Interpr Notes Date tion ce etation Range Troponin 0.00 - ng/mL Normal No Jun 01 I.cardiac 0.06 2016 1:45 on in AM [Mass/vol source ume] in data Serum or Plasma CBC W Auto Differential panel in Blood Observa Value Referen Units Interpr Notes Date tion ce etation Range Basophils 0 - 0.2 K/MM3 Normal No Jun 012016 1:45 [#/volume on in AM ] in source Blood by data Automated count Basophils 0.1 - 2.0 % Normal No Jun 01 /100 inform2016 1:45 leukocyte on in AM s in source Blood by data Automated count Eosinophi 0.0 - 0.4 K/mm3 Normal No Jun 01 ls 2016 1:45 [#/volume on in AM ] in source Blood by data Automated count Eosinophi 0.1 - % Normal No Jun 01 ls/100 12.0 2016 1:45 leukocyte on in AM s in source Blood by data Automated count Granulocy 1.3 - 8.0 K/mm3 Normal No May 4 pool informati 2016 1:45 [#/volume on in AM ] in source Blood by data Automated count Granulocy 37.0 - % Normal No Jun 01 pool/100 80.0 informati 2016 1:45 leukocyte on in AM s in source Blood by data Automated count Hematocri 42.0 - % Low No Jun 01 t [Volume 52.0 informati 2016 1:45 on in AM Fraction] source of Blood data Hemoglobi 14.1 - g/dL Low No Jun 01 n 18.0 informati 2016 1:45 [Mass/vol on in AM ume] in source Blood data Lymphocyt 0.7 - 4.5 K/mm3 Normal No Jun 01 es inform2016 1:45 [#/volume on in AM ] in source Unspecifi data ed specimen by Automated count Lymphocyt 10 - 50 % Normal No Jun 01 es 2016 1:45 [#/volume on in AM ] in source Unspecifi data ed specimen by Automated count Erythrocy 27 - 31.2 pg High No Jun 01 te mean inform2016 1:45 corpuscul on in AM ar source hemoglobi data n [Entitic mass] Erythrocy 31.8 - g/dl Normal No Jun 01 te mean 35.4 informati 2016 1:45 corpuscul on in AM ar source hemoglobi data n concentra tion [Mass/vol ume] by Automated count Erythrocy 82.2 - fl Normal No Jun 01 te mean 97.8 informati 2016 1:45 corpuscul on in AM ar volume source [Entitic data volume] by Automated count Monocytes 0.1 - 1.0 K/mm3 High No Jun 01ati 2016 1:45 [#/volume on in AM ] in source Blood by data Automated count Monocytes 1.7 - 9.3 % High No Jun 01 /100 informati 2017 1:45 leukocyte on in AM s in source Blood by data Automated count Platelet 7.4 - fl Normal No Jun 01 mean 10.4 inform2016 1:45 volume on in AM [Entitic source volume] data in Blood by Automated count Platelets 142 - 424 K/mm3 Normal No Jun 01 inform2016 1:45 [#/volume on in AM ] in source Blood data Erythrocy 4.6 - 6.2 M/mm3 Low No Oct 4 pool informati 2016 1:45 [#/volume on in AM ] in source Amniotic data fluid Erythrocy 11.5 - % Normal No Jun 01 te 17.5 informati 2017 1:45 distribut on in AM ion width source [Entitic data volume] by Automated count Leukocyte 4.8 - K/MM3 Normal No Jun 01 s 10.8 informati 2017 1:45 [#/volume on in AM ] in source Blood data Glucose [Mass/volume] in Capillary blood by Glucometer Observa Value Referen Units Interpr Notes Date tion ce etation Range Glucose 70 - 110 mg/dl High No Apr 12 [Mass/vol informati 2017 ume] in on in 10:00 AM Capillary source blood by data Glucomete r CBC W Auto Differential panel in Blood Observa Value Referen Units Interpr Notes Date tion ce etation Range Granulocy 1.3 - 8.0 K/mm3 Normal No Mar 19 pool informati 2016 1:13 [#/volume on in PM ] in source Blood by data Automated count Granulocy 37.0 - % Normal No Mar 19 pool/100 80.0 informati 2016 1:13 leukocyte on in PM s in source Blood by data Automated count Hematocri 42.0 - % Low No Mar 19 t [Volume 52.0 informati 2017 1:13 on in PM Fraction] source of Blood data Hemoglobi 14.1 - g/dL Low No Mar 19 n 18.0 informati 2016 1:13 [Mass/vol on in PM ume] in source Blood data Lymphocyt 0.7 - 4.5 K/mm3 Normal No Mar 19 es informati 2016 1:13 [#/volume on in PM ] in source Unspecifi data ed specimen by Automated count Lymphocyt 10 - 50 % Normal No Mar 19 es informati 2016 1:13 [#/volume on in PM ] in source Unspecifi data ed specimen by Automated count Erythrocy 27 - 31.2 pg High No Mar 19 te mean informati 2016 1:13 corpuscul on in PM ar source hemoglobi data n [Entitic mass] Erythrocy 31.8 - g/dl Normal No Mar 19 te mean 35.4 informati 2016 1:13 corpuscul on in PM ar source hemoglobi data n concentra tion [Mass/vol ume] by Automated count Erythrocy 82.2 - fL High No Mar 19 te mean 97.8 informati 2016 1:13 corpuscul on in PM ar volume source [Entitic data volume] by Automated count Monocytes 0.1 - 1.0 K/mm3 Normal No Mar 19 inform2016 1:13 [#/volume on in PM ] in source Blood by data Automated count Monocytes 1.7 - 9.3 % Normal No Mar 19 /100 informati 2016 1:13 leukocyte on in PM s in source Blood by data Automated count Platelets 142 - 424 K/mm3 Normal No Mar 19 inform2016 1:13 [#/volume on in PM ] in source Blood data Erythrocy 4.6 - 6.2 M/mm3 Low No Mar 19 pool informati 2016 1:13 [#/volume on in PM ] in source Amniotic data fluid Erythrocy 11.5 - % High No Mar 19 te 17.5 informati 2016 1:13 distribut on in PM ion width source [Entitic data volume] by Automated count Leukocyte 4.8 - K/mm3 Normal No Mar 19 s 10.8 informati 2016 1:13 [#/volume on in PM ] in source Blood data Erythrocyte sedimentation rate by Westergren method Observa Value Referen Units Interpr Notes Date tion ce etation Range Erythrocy 0 - 20 mm/hr High No Mar 19 te informati 2016 1:13 sedimenta on in PM tion rate source by data Westergre n method CBC W Auto Differential panel in Blood Observa Value Referen Units Interpr Notes Date tion ce etation Range Granulocy 1.3 - 8.0 K/mm3 Normal No Mar 19 informati 2016 1:13 [#/volume on in PM ] in source Blood by data Automated count Granulocy 37.0 - % Normal No Mar 19 pool/100 80.0 informati 2016 1:13 leukocyte on in PM s in source Blood by data Automated count Hematocri 42.0 - % Low No Mar 19 t [Volume 52.0 informati 2016 1:13 on in PM Fraction] source of Blood data Hemoglobi 14.1 - g/dL Low No Mar 19 n 18.0 informati 2016 1:13 [Mass/vol on in PM ume] in source Blood data Lymphocyt 0.7 - 4.5 K/mm3 Normal No Mar 19 es ati 2016 1:13 [#/volume on in PM ] in source Unspecifi data ed specimen by Automated count Lymphocyt 10 - 50 % Normal No Mar 19 es informati 2016 1:13 [#/volume on in PM ] in source Unspecifi data ed specimen by Automated count Erythrocy 27 - 31.2 pg High No Mar 19 te mean informati 2016 1:13 corpuscul on in PM ar source hemoglobi data n [Entitic mass] Erythrocy 31.8 - g/dl Normal No Mar 19 te mean 35.4 informati 2016 1:13 corpuscul on in PM ar source hemoglobi data n concentra tion [Mass/vol ume] by Automated count Erythrocy 82.2 - fL High No Mar 19 te mean 97.8 informati 2016 1:13 corpuscul on in PM ar volume source [Entitic data volume] by Automated count Monocytes 0.1 - 1.0 K/mm3 Normal No Mar 19 informati 2016 1:13 [#/volume on in PM ] in source Blood by data Automated count Monocytes 1.7 - 9.3 % Normal No Mar 19 /100 informati 2017 1:13 leukocyte on in PM s in source Blood by data Automated count Platelets 142 - 424 K/mm3 Normal No Mar 19 informati 2016 1:13 [#/volume on in PM ] in source Blood data Erythrocy 4.6 - 6.2 M/mm3 Low No Mar 19 pool informati 2017 1:13 [#/volume on in PM ] in source Amniotic data fluid Erythrocy 11.5 - % High No Mar 19 te 17.5 informati 2016 1:13 distribut on in PM ion width source [Entitic data volume] by Automated count Leukocyte 4.8 - K/mm3 Normal No Mar 19 s 10.8 informati 2016 1:13 [#/volume on in PM ] in source Blood data Erythrocyte sedimentation rate by Westergren method Observa Value Referen Units Interpr Notes Date tion ce etation Range Erythrocy 0 - 20 mm/hr High No Mar 19 te informati 2016 1:13 sedimenta on in PM tion rate source by data Westergre n method CBC W Auto Differential panel in Blood Observa Value Referen Units Interpr Notes Date tion ce etation Range Granulocy 1.3 - 8.0 K/mm3 Normal No Mar 19 pool informati 2016 1:13 [#/volume on in PM ] in source Blood by data Automated count Granulocy 37.0 - % Normal No Mar 19 pool/100 80.0 informati 2017 1:13 leukocyte on in PM s in source Blood by data Automated count Hematocri 42.0 - % Low No Mar 19 t [Volume 52.0 informati 2017 1:13 on in PM Fraction] source of Blood data Hemoglobi 14.1 - g/dL Low No Mar 19 n 18.0 informati 2017 1:13 [Mass/vol on in PM ume] in source Blood data Lymphocyt 0.7 - 4.5 K/mm3 Normal No Mar 19 es informati 2017 1:13 [#/volume on in PM ] in source Unspecifi data ed specimen by Automated count Lymphocyt 10 - 50 % Normal No Mar 19 es informati 2017 1:13 [#/volume on in PM ] in source Unspecifi data ed specimen by Automated count Erythrocy 27 - 31.2 pg High No Mar 19 te mean informati 2017 1:13 corpuscul on in PM ar source hemoglobi data n [Entitic mass] Erythrocy 31.8 - g/dl Normal No Mar 19 te mean 35.4 informati 2017 1:13 corpuscul on in PM ar source hemoglobi data n concentra tion [Mass/vol ume] by Automated count Erythrocy 82.2 - fL High No Mar 19 te mean 97.8 informati 2017 1:13 corpuscul on in PM ar volume source [Entitic data volume] by Automated count Monocytes 0.1 - 1.0 K/mm3 Normal No Mar 19 informati 2017 1:13 [#/volume on in PM ] in source Blood by data Automated count Monocytes 1.7 - 9.3 % Normal No Mar 19 / informati 2017 1:13 leukocyte on in PM s in source Blood by data Automated count Platelets 142 - 424 K/mm3 Normal No Mar 19 informati 2017 1:13 [#/volume on in PM ] in source Blood data Erythrocy 4.6 - 6.2 M/mm3 Low No Mar 19 pool informati 2017 1:13 [#/volume on in PM ] in source Amniotic data fluid Erythrocy 11.5 - % High No Mar 19 te 17.5 informati 2017 1:13 distribut on in PM ion width source [Entitic data volume] by Automated count Leukocyte 4.8 - K/mm3 Normal No Mar 19 s 10.8 informati 2017 1:13 [#/volume on in PM ] in source Blood data Erythrocyte sedimentation rate by Westergren method Observa Value Referen Units Interpr Notes Date tion ce etation Range Erythrocy 0 - 20 mm/hr High No Mar 19 te informati 2017 1:13 sedimenta on in PM tion rate source by data Westergre n method Urinalysis macro (dipstick) panel in Urine Observa Value Referen Units Interpr Notes Date tion ce etation Range Appeara Clear CLEAR No No No Mar 19 nce of informa informa informa 2017 Urine tion in tion in tion in 12:18 source source source PM data data data Bilirub NEGATIV NEG No No No Mar 19 in E informa informa informa 2016 [Presen tion in tion in tion in 12:18 ce] in source source source PM Urine data data data by Test strip Erythro NEGATIV NEG No No No Mar 19 cytes E informa informa informa 2016 [Presen tion in tion in tion in 12:18 ce] in source source source PM Urine data data data Color YELLOW YELLOW No No No Mar 19 of informa informa informa 2017 Urine tion in tion in tion in 12:18 source source source PM data data data Glucose NEG No No No Mar 19 [Mass/vol informati informati informati 2017 ume] in on in on in on in 12:18 PM Urine by source source source Test data data data strip Ketones NEGATIV NEG mg/dL No No Mar 19 E informa informa 2016 [Presen tion in tion in 12:18 ce] in source source PM Urine data data by Automat ed test strip pH of 5.0 - 8.5 No Normal No Mar 19 Urine informati informati 2017 on in on in 12:18 PM source source data data Protein NEG mg/dL No No Mar 19 [Mass/vol informati informati 2017 ume] in on in on in 12:18 PM Urine by source source Automated data data test strip Specific 1.005 - No Normal No Mar 19 gravity 1.030 informati informati 2016 of Urine on in on in 12:18 PM source source data data Leukocy NEGATIV NEG No No No Mar 19 te E informa informa informa 2017 esteras tion in tion in tion in 12:18 e source source source PM [Presen data data data ce] in Urine by Automat ed test strip Nitrite NEGATIV NEG No No No Mar 19 E informa informa informa 2016 [Presen tion in tion in tion in 12:18 ce] in source source source PM Urine data data data by Test strip Urobili 0.2 NEG E.U./dL No No Mar 19 nogen informa informa 2016 [Presen tion in tion in 12:18 ce] in source source PM Urine data data by Test strip Basic metabolic panel in Blood Observa Value Referen Units Interpr Notes Date tion ce etation Range Urea 7 - 18 mg/dL High No January 20 nitrogen informati 2016 [Mass/vol on in 11:22 AM ume] in source Serum or data Plasma Calcium 8.5 - mg/dL Normal No January 20 [Mass/vol 10.1 informati 2016 ume] in on in 11:22 AM Serum or source Plasma data Chloride 98 - 107 mmoL/L Normal No January 20 [Moles/vo informati 2016 lume] in on in 11:22 AM Serum or source Plasma data Carbon 21.0 - mmoL/L Normal No January 20 dioxide, 32.0 informati 2016 total on in 11:22 AM [Moles/vo source lume] in data Serum or Plasma Creatinin 0.70 - mg/dL High No January 20 e 1.30 informati 2016 [Mass/vol on in 11:22 AM ume] in source Serum or data Plasma Estimated >60 ML/MIN No REFERENCE January 20 informati RANGE: 2017 glomerula on in >60 11:22 AM r source ML/MIN/1. filtratio data 73 SQUARE n rate METERSIf (GF this patient is -A merican, then multiply theresult by 1.210. Glucose 74 - 106 mg/dL High No January 20 [Mass/vol informati 2016 ume] in on in 11:22 AM Serum or source Plasma data Potassium 3.5 - 5.1 mmoL/L High No January 20 informati 2016 [Moles/vo on in 11:22 AM lume] in source Serum or data Plasma Sodium 136 - 145 mmoL/L Normal No January 20 [Moles/vo informati 2017 lume] in on in 11:22 AM Serum or source Plasma data
== END 2017-06-01 04:06 | disposition home or self-care (01) ==
LOC: ER 01:29
PROVIDERS: Emergency Medicine
DX: R10.84 Generalized abdominal pain (principal); N28.9 Disorder of kidney and ureter, unspecified; Z88.6 Allergy status to analgesic agent; Z79.82 Long term (current) use of aspirin; I10 Essential (primary) hypertension; E11.9 Type 2 diabetes mellitus without complications; Z87.891 Personal history of nicotine dependence

== ENCOUNTER 2017-07-15 16:18 | Observation (INO) | payer MEDICARE ==
[~2017-07-15] VITALS: Ht 172.7 cm; Wt 80.9 kg
[2017-07-15 16:22] VITALS: BP 122/63
--- OUTSIDE RECORDS SUMMARY | 2017-07-15 16:30 | External Medical Summary Rpt | CCD ---
Author Author [employer] Organization [employer] Address Unknown Phone Unavailable Purpose Continuity of Care Document - through 2016
--- OUTSIDE RECORDS SUMMARY | 2017-07-15 16:30 | External Medical Summary Rpt | CCD ---
Author Author , [facility] Organization [facility] Address Unknown Phone [email or web address] Immunization Name Date Rout CVX Reac Dose Comm Prov Is Faci e tion ent ider Refu lity Give sed n PPV2 11- 33 999 Hist D203 No D203 3 0-20 oric 45 45 16 al Info rmat ion - Sour ce Unsp ecif ied Infl 11- 135 999 Hist D203 No D203 uenz 0-20 oric 45 45 a, 16 al High Info rmat Dose ion - Sour ce Unsp ecif ied
--- OUTSIDE RECORDS SUMMARY | 2017-07-15 16:30 | External Medical Summary Rpt | CCD ---
Author Author , [facility] Organization [facility] Address Unknown Phone [email or web address] Purpose Continuity of Care Document - 01-20-2017 through 2016 Problems Code Diagnosis DOS Provider Status L03.90 CELLULITIS, UNSPECIFIED M54.2 CERVICALGIA N28.9 DISORDER OF KIDNEY AND URETER, UNSPECIFIED R10.9 UNSPECIFIED ABDOMINAL PAIN Results Labs Lab Lab Date Result Refere [...] by Microsc opy high power field Leukocy 06-01- 3-5 O complet pool 017 wbc/hpf ed [...]
--- OUTSIDE RECORDS SUMMARY | 2017-07-15 16:30 | External Medical Summary Rpt | CCD ---
Author Author , [facility] Organization [facility] Address Unknown Phone [email or web address] Purpose Continuity of Care Document - 01-20-2017 [...]
--- OUTSIDE RECORDS SUMMARY | 2017-07-15 16:30 | External Medical Summary Rpt | CCD ---
Author Author , [facility] Organization [facility] Address Unknown Phone [email or web address] Immunization Name Date Rout CVX Reac Dose [...]
--- NOTE | 2017-07-15 17:03 | Emergency Room Report ---
History of Present Illness Time Seen by [id number] Presenting Problem in Triage Pt arrived:Walked Presenting Problem:PT REPORTS BURNING PAIN IN EPIGASTRIC AREA X3 DAYS. PT REPORTS VOMITTED LASTNIGHT, STATES HAS TAKEN MEDICATION FOR HEART BURN BUT NO IMPROVEMENT, STATES HAD BLACK HARD STOOL TODAY. Onset of symptoms date/time:07/12/17/ or onset unknown for:MEDICAL HX UNKNOWN Treatment Prior to Arrival: [employer]LECT[employer]MENT [employer]ER Provided by: Sepsis Risk Assessment: Temp: 96.9 B/P: 122/63 MAP: 82 Pulse: 93 Resp: 20 Recent fever? N Clinical Suspician of Infection? N Mental Status: 1 - Regular (Normal Baseline) Sepsis Risk:Possible Sepsis Risk Have you (or family members/close friends) recently traveled outside the [place]? N If Yes, where/when: Have you had exposure to infectious disease within the past month? N TB? Other? Specify: epigastric pain radiating to back x four days; on Effient and has easy bruising; had dark stool x one today. Taking PO well. No ashlyn chest pain. No SOB., ALLERGIES Coded Allergies: baclofen (Severe, SWELLING 11/11/16) gabapentin (From NEURONTIN) (Mild, 11/30/16) metformin (Mild, 11/30/16) morphine (Mild, 11/30/16) Home Medications Active Scripts Atorvastatin Calcium (Lipitor 40MG) 80 MG PO QHS #30 TAB Ref 5 Prov: 11/12/16 Prasugrel HCl (Effient) 10 MG PO DAILY #30 TAB Ref 6 Prov: 11/12/16 Reported Medications Furosemide (Furosemide) 20 MG PO Q48H #30 TAB Glimepiride (Amaryl) 1 MG PO DAILY Cyclobenzaprine Hcl (Cyclobenzaprine 10MG) 10 MG PO BID Levetiracetam (Keppra 500 Mg Tablet) 500 MG PO BID CHOLECALCIFEROL (VITAMIN D3) (Vitamin D3) 1,000 IU PO DAILY MULTIVITAMIN (One Daily Multivitamin) 1 TAB PO DAILY Albuterol (Albuterol-Hfa Inhaler) 1 PUFF IH Q4HP PRN BREATHNING HYDROCODONE/ACETAMINOPHEN ([place] 7.5-325 Tablet) 1 TAB PO Q8HP PRN SHOULDER PAIN LISINOPRIL/HYDROCHLOROTHIAZIDE (Lisinopril-Hctz 20-12.5 MG Tab) 1 TAB PO BID #60 ASPIRIN (Aspirin) 81 MG PO DAILY Linaclotide (Linzess 145MCG) 145 MCG PO DAILY TAMSULOSIN HCL (Tamsulosin HCl) 0.4 MG PO DAILY #30 History Medical History General CAD? Yes Angina: No [place]: Yes Hypertension? Yes Hyperlipidemia? Yes CHF? No DVT? No PE? No COPD? Yes Asthma? No Anemia? No GERD? No Gastric ulcers? No GI Bleed? No Hernia? No Thyroid Problems? No Hypothyroidism? No CVA? No Seizures? Yes Diabetes? Yes Insulin Dependent: No Insulin Pump: No Home FSBS? No Renal Insuffiency? No End Stage Renal Disease? No UTI? No Stones? No BPH? Yes GB Disease: No Nephritic Syndrome? No Asplenia? No Hepatitis? No Sickle Cell Disease? No Arthritis? Yes Migraines? No Cataracts? Yes Glaucoma? No MRSA? No HIV? No TB? No Anxiety? No Depression? No Cancer? No More? No Immunization Hx DT/Tetanus > 10 Years Ago Flu 2015-FSN Pneumonia Received In Past Surgical Hx Previous Surgery?Y SPINAL SURGERY CATARACTS R EYE SCAR TISSUE REMOVAL L EYE CATARACT TO LEFT CARDIAC CATH 5 STENTS IN HEART 4 STENTS IN LEFT THIGH Family History Family Hx Diabetes Yes CAD Yes Hypertension Yes Hyperlipidemia Yes Cancer Yes TB No Social History Smoking Hx Smoker: Former Smoker Tobacco: No Packs/day < 1 Pack Alcohol Alcohol: No Review of Systems All Other Systems Reviewed and Negative Gastrointestinal see HPI Physical Exam Vital Signs Vital Signs Date Time Temp Pulse Resp B/P Pulse O2 O2 Flow FiO2 Ox Delivery Rate 07/15 1811 101 20 105/60 97 07/15 1622 96.9 93 20 122/63 100 General Appearance normal appearance, WD/WN, no apparent distress Eye Exam - bilateral eye normal exam, bilateral eye PERRL, bilateral eye EOMI Neck normal inspection, non-tender, supple, full range of motion Respiratory Status Yes: trachea midline, chest symmetrical, non tender chest. No: respiratory distress, tender on palpation, use of accessory muscles, pain on inspiration, pain on expiration, productive cough, non productive cough. Lung Sounds bilateral: normal breath sounds, lungs clear. Cardiovascular normal exam, regular rate/rhythm, no peripheral edema, no gallop, no JVD, no murmur, no rub Gastrointestinal normal bowel sounds, normal exam, non tender, soft, no organomegaly, no pulsatile mass, distended (somewhat distended), no guarding, no rebound Extremities non-tender, normal range of motion, normal inspection, normal capillary refill, some scattered ecchymosis Strength 5 Upper Ext (L), 5 Upper Ext (R), 5 Lower Ext (L), 5 Lower Ext (R) Neurologic alert, normal exam, no motor/sensory deficits, oriented x 3 Glascow Coma Scale Glascow Coma Scale Response Value EYE response: 4 Spontaneously 4 MOTOR response: 6 OBEYS 6 VERBAL response: 5 Oriented & Converses 5 Total 15 Skin intact, normal color, bruising Medical Decision Making LABS/Meds/Orders Pt receiving controlled substance in ED? No Results/Orders Laboratory Tests 07/15/17 1725: Stool Occult Blood POSITIVE 07/15/17 1700: Sodium 134 L, Potassium 4.1, Chloride 96 L, Carbon Dioxide 28, BUN 61 H, Creatinine 2.5 H, Estimated Creat Clear 31 L, Estimated GFR (MDRD) 25, Glucose 162 H, Calcium 8.7, Total Bilirubin 0.6, AST 39 H, ALT 68, Alkaline Phosphatase 76, Creatine Kinase 107, CK-MB (CK-2) Rel Index 3.6, CK and CKMB Interp 3.8 H, Troponin I 0.02, Total Protein 7.0, Albumin 3.5, Globulin 3.5 H, Albumin/Globulin Ratio 1.0 L, Lipase 150, WBC 11.4 H, RBC 3.99 L, Hgb 12.8 L , Hct 38.3 L, MCV 95.9, RDW 14.6, Plt Count 266, MPV 7.8, Gran % 71.5, Gran # 8.1 H, Lymphocytes % 14.5, Monocytes % 12.3 H, Eosinophils % 1.3, Basophils % 0.5, Lymphocytes # 1.7, Monocytes # 1.4 H, Eosinophils # 0.2, Basophils # 0.1, PUBS MCHC 33.3, MCH 31.9 H Current Medication Orders Sig/Vincent Start time Last Medication Dose Route Stop Time Status Admin Pantoprazole Sodium 0 .STK-MED ONE 07/15 1850 DC IV Pantoprazole Sodium 40 MG ONCE ONE 07/15 1845 DC 07/15 IV 07/15 Sodium Chloride 10 ML ONCE ONE 07/15 1845 DC 07/15 IV 07/15 1846 1856 Sodium Chloride 10 ML PRN PRN 07/15 1700 AC IV 07/16 1650 Orders Procedure Date/time Status DIET-NOTHING BY MOUTH 07/16 B Active Decision to admit 07/15 185 Active GEN NSG/PT REQ (NOT FOR MEDS!) 07/[address] ABD/PELVIS REQ 07/15 1719 Complete STOOL OCCULT BLOOD 07/15 1652 Complete 12 LEAD EKG-EDIS (INITIAL) 07/15 165 Active ELECTROCARDIOGRAM REQUEST 07/15 165 Active IV SALINE LOCK 07/15 165 Active URINALYSIS/COMPLETE 07/15 165 Complete LIPASE 07/15 165 Complete CBC WITH AUTO DIFF 07/15 165 Complete CARDIAC ENZYMES 07/15 165 Complete CHEM 12 PROFILE 07/15 1650 Complete CM/EKG CM/EKG EKG rate, NSR, rhythm, no evid. of ischemic chgs, normal QRS, normal CO, normal EKG (occ APC no prior; Q W ant) XRAY/CT/US XRAY/CT/US XRAY chest XR interpretation by reviewed by me (report reviewed) Xray Results abnormal (borderline CM, some atelect) CT abdomen, pelvis CT interpretation by reviewed by me (report reviewed) Time results known: 1827 CT Results normal/NAD, soome liquid stool neg acute per report Consult MD Physician Consult 1 Time Called 1848 Reason Pt. Condition, Surgical eval/care Comments Dr. Monzon: admit to PCP, Dr. Monzon to evaluate pt in AM for consideration for EGD Physician Consult 2 Time Called [address] Newell traffic division commanding officer for Dr. Richard: admit Departure Departure Time of Disposition 1849 Disposition Still a Patient Clinical Impression Primary Impression: Epigastric abdominal pain Secondary Impressions: Guaiac positive stools Condition STABLE Referrals Jose Manuel VILLEGAS,Kendall (Family) ED Critical Care Critical Care No at 1934
[2017-07-15 17:09] LABS: LYMPH # 1.7 K/mm3 (0.7-4.5); LYMPH % 14.5 % (10-50)
[2017-07-15 17:14] LABS: HEMOGLOBIN 12.8 g/dL (14.1-18.0)
--- NOTE | 2017-07-15 17:20 | RADIOLOGY REPORT PS360 ---
CHEST-PORTABLE HISTORY: CPT. Chest pain Patient Age: 71 years: Male Ordering Physician: Isabel Ospina MD TECHNIQUE: AP portable chest COMPARISON :Previous portable chest 06/01/2017. And 12/14/2016. FINDINGS No significant interval change. Heart upper normal in size with borderline cardio megaly.. Deb and mediastinal structures stable. Postsurgical changes from previous anterior cervical fusion lower C-spine. The lungs mildly hyperexpanded upper lungs with slight coarsening markings toward lung bases. There may be some atelectasis and scarring at left left lung base which partially blurs the left hemidiaphragm. Doubt early infiltrate IMPRESSION: . Mild atelectasis left lung base of May partially blurring the left hemidiaphragm. No prominent findings nothing definitely acute otherwise. Borderline cardiac megaly
[2017-07-15 17:32] LABS: STOOL OCCULT BLOOD POSITIVE (NEG)
--- NOTE | 2017-07-15 18:02 | RADIOLOGY REPORT PS360 ---
CT ABD PELVIS W/O CONTRAST HISTORY: EPIGASTRIC PAIN upper epigastric pain. Denies nausea vomiting Patient Age: 71 years: Male Ordering Physician: Isabel Ospina MD TECHNIQUE: Helical CT scanning performed the abdomen and pelvis with no oral nor IV contrast utilized. Sagittal coronal reconstruction CT workstation COMPARISON :Previous CT abdomen pelvis 06/01/2017 FINDINGS Lung bases. No active disease. Heart normal size with trace pericardial fluid . Appears to be extensive right coronary artery stents in place Abdomen/pelvis. Lack of oral and IV contrast decreases sensitivity. In addition the patient could not raise his arm above head which yields streak artifact which interferes with imaging in decreases sensitivity in evaluating the upper abdomen particularly the liver. Liver. The streak artifact here from overlying arms. No discrete acute findings or lesions can be appreciated on this noncontrast study. . pancreas is unremarkable except to note some tiny stable calcifications of pancreas possibly from old pancreatitis.. Gallbladder. Likely sludge layering within dependent gallbladder. Adrenals unremarkable. Kidneys. No hydronephrosis. No obstructive uropathy. Right kidney renal cysts measure fluid density compatible with benign renal cyst. . 2.4 cm cyst off the lower pole with a 4.2 cm cyst just above this at lateral lower pole. Renal vascular calcifications noted bilaterally. Extensive atherosclerotic calcification of aorta as well as it SMA, iliacs renal arteries: . GI tract. The appendix is normal. Minimal liquid stool at the right and transverse colon could reflect developing diarrhea. It also generous fluid throughout normal caliber small bowel. With generous fluid filled stomach. Cannot exclude developing enteritis with this appearance. Fairly empty left colon with no stool or liquid stool here. Degenerative changes throughout the spine is previously noted. Multilevel spondylosis. 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 1. Generous fluid throughout nondilated small bowel.. Liquid stool nondilated right & transverse colon.--- Nonspecific but could reflect developing enteritis & possible developing diarrhea... Correlation required .No significant acute findings abdomen or pelvis otherwise seen. No bowel dilatation or obstruction.Appendix is normal. 2. Benign right renal cysts stable since previous study. 3. Prominent atherosclerotic calcification throughout aorta and iliac arteries as well as proximal SMA calcification. Incidentally noted . 4. Suspect minimal layering sludge at gallbladder
--- OUTSIDE RECORDS SUMMARY | 2017-07-15 19:00 | External Medical Summary Rpt | CCD ---
Author Author , ARNOL Organization ARNOL Address Unknown Phone [email or web address] Purpose Continuity of Care Document - through 2016 Problems Code Diagnosis DOS Provider Status L03.90 CELLULITIS, UNSPECIFIED M54.2 CERVICALGIA N28.9 DISORDER OF KIDNEY AND URETER, UNSPECIFIED R10.9 UNSPECIFIED ABDOMINAL PAIN
--- OUTSIDE RECORDS SUMMARY | 2017-07-15 19:00 | External Medical Summary Rpt | CCD ---
Author Author , ARNOL Organization ARNOL Address Unknown Phone [email or web address] Purpose Continuity of Care Document - through 2016 Problems Code Diagnosis DOS Provider Status L03.90 CELLULITIS, UNSPECIFIED M54.2 CERVICALGIA N28.9 DISORDER OF KIDNEY AND URETER, UNSPECIFIED R10.9 UNSPECIFIED ABDOMINAL PAIN
--- OUTSIDE RECORDS SUMMARY | 2017-07-15 19:01 | External Medical Summary Rpt | CCD ---
Author Author , ARNOL Organization ARNOL Address Unknown Phone [email or web address] Immunization Name Date Rout CVX Reac Dose Comm Prov Is Faci e tion ent ider Refu lity Give sed n Infl 11- 135 999 Hist D203 No D203 uenz 0-20 oric 45 45 a, 16 al High Info rmat Dose ion - Sour ce Unsp ecif ied PPV2 11-1 33 999 Hist D203 No D203 3 0-20 oric 45 45 16 al Info rmat ion - Sour ce Unsp ecif ied
--- OUTSIDE RECORDS SUMMARY | 2017-07-15 19:01 | External Medical Summary Rpt | CCD ---
Author Author , ARNOL Organization ARNOL Address Unknown Phone [email or web address] Immunization Name Date Rout CVX Reac Dose [...]
[2017-07-15 19:18] LABS: URINE BILIRUBIN - DIPSTICK NEGATIVE (NEG); URINE BLOOD 3+ (NEG)
[2017-07-15 20:10] VITALS: BP 122/60
[2017-07-16] VITALS (7 sets, daily range): BP systolic 89–109; BP diastolic 41–59
[2017-07-16] MEDS ORDERED: IPRATROPIUM BROM3 M1 IH (00:38)
[2017-07-16 07:06] LABS: HEMOGLOBIN 11.6 g/dL (14.1-18.0); LYMPH # 1.7 K/mm3 (0.7-4.5); LYMPH % 16.9 % (10-50)
--- NOTE | 2017-07-16 08:08 | HISTORY AND PHYSICAL REPORT ---
Demographics: Admit date: 07/16/17 Chief complaint: Epigastric pain PRIMARY DIAGNOSIS: suspected ulcer Allergies: Coded Allergies: baclofen (Severe, SWELLING 11/11/16) gabapentin (From NEURONTIN) (Mild, 11/30/16) metformin (Mild, 11/30/16) morphine (Mild, 11/30/16) History of present illness: History of present illness: 71-year-old male presented to the emergency department with a 1-3 day history of burning sensation in the epigastrium that acutely worsened yesterday afternoon after the patient had eaten lunch. Patient's daughter tells me he has been taking several different medications and remedies to try to help with chronic constipation and this resulted in a bowel movement that was mixed with hard stool and water. However the stools were black in color. There was concern about leaving and patient was brought to the emergency department. Patient tells me after being treated in the emergency department his abdominal pain went away. Patient's stool was positive for blood. Hemoglobin was 12.2. Patient was admitted for serial H and H and surgical consult. ER physician did speak with Dr. Lyle on the day of admission. Patient continues to deny abdominal pain this morning. He has not had another bowel movement. Patient has underlying coronary artery disease and peripheral arterial disease for which he is on Effient and aspirin. Patient's interventions were in October of this year. Past medical history: Family HX Diabetes Yes CAD Yes Hypertension Yes Hyperlipidemia Yes Cancer Yes TB No Immunization HX DT/Tetanus > 10 Years Ago Flu 2015-FSN Pneumonia Received In Past TB Test in last year No General CAD? Yes Angina: No [place]: Yes Hypertension? Yes Hyperlipidemia? Yes CHF? No DVT? No PE? No COPD? Yes Asthma? No Anemia? No GERD? No Gastric ulcers? No GI Bleed? No Hernia? No Thyroid Problems? No Hypothyroidism? No CVA? No Seizures? Yes Diabetes? Yes Insulin Dependent: No Insulin Pump: No Home FSBS? No Renal Insuffiency? No UTI? No Stones? No BPH? Yes GB Disease: No Nephritic Syndrome? No Asplenia? No Hepatitis? No Sickle Cell Disease? No Arthritis? Yes Migraines? No Cataracts? Yes Glaucoma? No MRSA? No HIV? No TB? No Anxiety? No Depression? No Cancer? No More? No Past Surgical HX Previous Surgery?Y SPINAL SURGERY CATARACTS R EYE SCAR TISSUE REMOVAL L EYE CATARACT TO LEFT CARDIAC CATH 5 STENTS IN HEART 4 STENTS IN LEFT THIGH Current home meds: Active Scripts Atorvastatin Calcium (Lipitor 40MG) 80 MG PO QHS #30 TAB Ref 5 Prov: 11/12/16 Prasugrel HCl (Effient) 10 MG PO DAILY #30 TAB Ref 6 Prov: 11/12/16 Reported Medications Furosemide (Furosemide) 20 MG PO Q48H #30 TAB Glimepiride (Amaryl) 1 MG PO DAILY ALBUTEROL-IPRATROPIUM (Iprat-Albut 0.5-3(2.5) MG/3 Ml) 3 ML IH Q2HP PRN BREATHING Cyclobenzaprine Hcl (Cyclobenzaprine 10MG) 10 MG PO BID Levetiracetam (Keppra 500 Mg Tablet) 500 MG PO BID CHOLECALCIFEROL (VITAMIN D3) (Vitamin D3) 1,000 IU PO DAILY MULTIVITAMIN (One Daily Multivitamin) 1 TAB PO DAILY Albuterol (Albuterol-Hfa Inhaler) 1 PUFF IH Q4HP PRN BREATHNING HYDROCODONE/ACETAMINOPHEN ([place] 7.5-325 Tablet) 1 TAB PO Q8HP PRN SHOULDER PAIN LISINOPRIL/HYDROCHLOROTHIAZIDE (Lisinopril-Hctz 20-12.5 MG Tab) 1 TAB PO BID #60 ASPIRIN (Aspirin) 81 MG PO DAILY Linaclotide (Linzess 145MCG) 145 MCG PO DAILY TAMSULOSIN HCL (Tamsulosin HCl) 0.4 MG PO DAILY #30 Social Hx: Smoking HX Tobacco No Type Cigarettes Packs/day N/A Alcohol Alcohol: No Hx of Drug Use Drug Use? No Patien't marital status is Patient's support system is good Review of systems: Constitutional no symptoms reported. Respiratory no symptoms reported. Cardiovascular no symptoms reported Gastrointestinal/Abdominal see HPI Genitourinary no symptoms reported. Musculoskeletal no symptoms reported. Neurological Yes: no symptoms reported. Exam: Lab data for last 24 hours: Laboratory Tests 07/16/17 0655: Sodium 133 L, Potassium 4.1, Chloride 100, Carbon Dioxide 25, BUN 58 H, Creatinine 2.0 H, Estimated Creat Clear 38 L, Estimated GFR (MDRD) 33, Glucose 97, Calcium 8.0 L, WBC 10.3, RBC 3.58 L, Hgb 11.6 L, Hct 34.3 L, MCV 96.0, RDW 14.5, Plt Count 244, MPV 8.4, Gran % 67.2, Gran # 6.9, Lymphocytes % 16.9, Monocytes % 12.8 H, Eosinophils % 2.7, Basophils % 0.4, Lymphocytes # 1.7, Monocytes # 1.3 H, Eosinophils # 0.3, Basophils # 0.0, PUBS MCHC 33.7, MCH 32.3 H 07/16/17 0631: POC Glucose 103 07/15/17 2305: POC Glucose 150 H 07/15/17 1910: Urine Color RED, Urine Appearance SL CLOUDY, Urine pH 6.5, Ur Specific [place] 1.010, Urine Protein 2+ H, Urine Ketones NEGATIVE, Urine Blood 3+ H, Urine Nitrate POSITIVE H, Urine Bilirubin NEGATIVE, Urine Urobilinogen 1.0, Ur Leukocyte Esterase 1+ H, Urine RBC 20-50, Urine WBC OCC, Ur Squamous Epith Cells NONE, Urine Bacteria NONE, Urine Glucose TRACE H 07/15/17 1725: Stool Occult Blood POSITIVE 07/15/17 1700: Sodium 134 L, Potassium 4.1, Chloride 96 L, Carbon Dioxide 28, BUN 61 H, Creatinine 2.5 H, Estimated Creat Clear 31 L, Estimated GFR (MDRD) 25, Glucose 162 H, Calcium 8.7, Total Bilirubin 0.6, AST 39 H, ALT 68, Alkaline Phosphatase 76, Creatine Kinase 107, CK-MB (CK-2) Rel Index 3.6, CK and CKMB Interp 3.8 H, Troponin I 0.02, Total Protein 7.0, Albumin 3.5, Globulin 3.5 H, Albumin/Globulin Ratio 1.0 L, Lipase 150, WBC 11.4 H, RBC 3.99 L, Hgb 12.8 L , Hct 38.3 L, MCV 95.9, RDW 14.6, Plt Count 266, MPV 7.8, Gran % 71.5, Gran # 8.1 H, Lymphocytes % 14.5, Monocytes % 12.3 H, Eosinophils % 1.3, Basophils % 0.5, Lymphocytes # 1.7, Monocytes # 1.4 H, Eosinophils # 0.2, Basophils # 0.1, PUBS MCHC 33.3, MCH 31.9 H Microbiology 07/15 191 URINE,FO: Urine Culture - RES Admission vital signs: 1ST Vital Signs Result Date Time Pulse Ox 100 07/15 1622 B/P 122/63 07/15 1622 Temp 96.9 07/15 1622 Pulse 93 07/15 1622 Resp 20 07/15 1622 O2 Delivery ROOM AIR 07/15 2010 Exam General appearance: alert, active, awake, no acute distress Cardiovascular: regular rate & rhythm Respiratory: clear to auscultation ABD: normal bowel sounds, soft, no tenderness, no guarding Plan: Problem List 1. Epigastric abdominal pain 2. Guaiac positive stools Plan: 1. Surgical consultation for EGD planning. 2. Hold patient's Effient and aspirin 3. Repeat H and H this afternoon 4. PPI plus Carafate 5. Liquid diet at 0807
[2017-07-16] MEDS ORDERED: CARAFATE1 GM PO (08:11)
[2017-07-16] MEDS ORDERED: DEXILANT60 MG PO (08:11)
--- NOTE | 2017-07-16 08:34 | CONSULT NOTE ---
Standard Demographics Patient Demo Date of Consultation: 07/16/17 Referring Provider: Kendall Richard MD Reason for Consultation: UGI bleed PRIMARY DIAGNOSIS: suspected ulcer Allergies: Coded Allergies: baclofen (Severe, SWELLING 11/11/16) gabapentin (From NEURONTIN) (Mild, 11/30/16) metformin (Mild, 11/30/16) morphine (Mild, 11/30/16) History of Present Illness Chief Complaint: black stool History of Present Illness: This is a 71-year-old gentleman seen in consultation from Dr. Richard for evaluation regarding possible upper gastrointestinal hemorrhage. He presented overnight emergency department with a 2-3 day history of epigastric burning. He has been treated for constipation recently and had "hard stools and dark stools ". The patient and his daughter describe the color the stool as "black". He coronary artery disease and peripheral arterial disease for which he is on Effient and aspirin. Past Medical History Reports: CAD, COPD, hypertension, diabetes mellitus. Surgical History Previous Surgery?Y SPINAL SURGERY CATARACTS R EYE SCAR TISSUE REMOVAL L EYE CATARACT TO LEFT CARDIAC CATH 5 STENTS IN HEART 4 STENTS IN LEFT THIGH Allergies Coded Allergies: baclofen (Severe, SWELLING 11/11/16) gabapentin (From NEURONTIN) (Mild, 11/30/16) metformin (Mild, 11/30/16) morphine (Mild, 11/30/16) Medications: Active Scripts Atorvastatin Calcium (Lipitor 40MG) 80 MG PO QHS #30 TAB Ref 5 Prov: 11/12/16 Prasugrel HCl (Effient) 10 MG PO DAILY #30 TAB Ref 6 Prov: 11/12/16 Reported Medications Furosemide (Furosemide) 20 MG PO Q48H #30 TAB Glimepiride (Amaryl) 1 MG PO DAILY ALBUTEROL-IPRATROPIUM (Iprat-Albut 0.5-3(2.5) MG/3 Ml) 3 ML IH Q2HP PRN BREATHING Cyclobenzaprine Hcl (Cyclobenzaprine 10MG) 10 MG PO BID Levetiracetam (Keppra 500 Mg Tablet) 500 MG PO BID CHOLECALCIFEROL (VITAMIN D3) (Vitamin D3) 1,000 IU PO DAILY MULTIVITAMIN (One Daily Multivitamin) 1 TAB PO DAILY Albuterol (Albuterol-Hfa Inhaler) 1 PUFF IH Q4HP PRN BREATHNING HYDROCODONE/ACETAMINOPHEN ([place] 7.5-325 Tablet) 1 TAB PO Q8HP PRN SHOULDER PAIN LISINOPRIL/HYDROCHLOROTHIAZIDE (Lisinopril-Hctz 20-12.5 MG Tab) 1 TAB PO BID #60 ASPIRIN (Aspirin) 81 MG PO DAILY Linaclotide (Linzess 145MCG) 145 MCG PO DAILY TAMSULOSIN HCL (Tamsulosin HCl) 0.4 MG PO DAILY #30 Family history Postive for: CAD, DM, HTN. Smoking Hx Tobacco: No Smoker: Former Smoker Type: Cigarettes Packs/day: N/A Are you/the child exposed to second-hand smoke: Yes Alcohol Alcohol: No Hx of Drug Use Drug Use? No Review of Systems Constitutional No: recent weight loss. Skin Positive for: bruising. Immune/allergy No: anaphalaxis. ENT No: nose bleed. Respiratory No: pneumonia. Cardiovascular No: palpitations. GI Positive for: melena. No: hematochezia. (male) No: hematuria. Heme Positive for: bruising. Endocrine No: polydipsia. Neurological No: change in LOC. Psychiatric No: anxious. Physical Exam VS/I&O Vital Signs Date Time Temp Pulse Resp B/P Pulse O2 O2 Flow FiO2 Ox Delivery Rate 07/16 0754 97.9 78 20 89/41 97 ROOM AIR 07/16 0349 97.9 79 20 95/52 94 ROOM AIR 07/16 0005 94 07/16 0005 97.8 81 24 07/16 0005 95 ROOM AIR 07/156 22 07/15 2010 98.0 93 20 122/60 95 ROOM AIR 07/15 1951 97.9 96 22 93/59 95 07/15 1931 97.9 96 22 93/59 95 07/15 1811 101 20 105/60 97 07/15 1622 96.9 93 20 122/63 100 I&O 07/16 0700 Intake Total Output Total 300 Balance -300 Output, Urine 300 Patient 80.91 kg Weight Exam General appearance no acute distress Respiratory no distress Cardiovascular regular rate and rhythm Abdomen soft Skin bruising Plan Plan: Impression: Melena - likely upper gastrointestinal hemorrhage. Hemodynamically stable with fairly stable H/H this morning. Plan: 1) repeat H/H this afternoon 2) continue to hold aspirin/Effient 3) PPI/Carafate 4) esophagogastroduodenoscopy in the very near future (as long as the patient remained stable and shows no sign of active hemorrhage this does not need to be done emergently and would likely be more safely accomplished after a few days of holding aspirin/Effient) 5) possible discharge home later today or tomorrow with plans for outpatient EGD 07/19 or 07/20 at 0839
[2017-07-16 15:22] LABS: HEMOGLOBIN 11.2 g/dL (14.1-18.0)
[2017-07-16 23:58] LABS: HEMOGLOBIN 11.1 g/dL (14.1-18.0); LYMPH # 1.9 K/mm3 (0.7-4.5); LYMPH % 16.6 % (10-50)
[2017-07-17 04:41] VITALS: BP 98/62
[2017-07-17 06:21] LABS: LYMPH # 1.9 K/mm3 (0.7-4.5)
--- NOTE | 2017-07-17 07:04 | ACUTE CARE PROGRESS NOTE (QUA) ---
Progress Notes Subjective Date 07/17/17 Time 0701 Note Patient did well yesterday until the evening when he developed gradual onset of abdominal pain and distention. He had some discomfort in the epigastrium and an episode of vomiting. He also had lower abdominal pain. Passing gas relieves some of his lower abdominal pain. This morning he denies any epigastric pain but continues to have pain below the umbilicus. He feels nauseous. Patient looks slightly anxious this morning. Oropharynx is moist. Heart has regular rate and rhythm. Lungs are clear. Abdomen is distended with increased tympany in the LEFT upper quadrant. Bowel sounds are present area abdomen is soft. Acute abdominal series from yesterday evening shows gastric bubble and some small bowel gas. Significant amount of stool is noted. I have ordered repeat abdominal film this morning H and H has trended down In regards to possible upper gastrointestinal bleed I will repeat H and H this afternoon. Continue to hold Brillinta and aspirin. In regards to his abdominal distention and pain repeat acute abdominal series. As long as there are no new findings attention will be turned to use of cathartics to have a quality bowel movement. Objective Findings Last VS-Temp:98.1 B/P:98/62 Pulse:76 Resp:20 SaO2:96 ROOM AIR Last weight lbs:178 oz:6 K.910 Method:Bed Scales Laboratory Tests 07/17/17 0628: POC Glucose 113 H 07/17/17 0605: WBC 9.7, RBC 3.46 L, Hgb 11.0 L, Hct 32.8 L, MCV 95.0, RDW 14.5, Plt Count 243, MPV 7.9, Gran % 61.9, Gran # 6.0, Lymphocytes % 20.0, Monocytes % 14.4 H, Eosinophils % 3.4, Basophils % 0.3, Lymphocytes # 1.9, Monocytes # 1.4 H, Eosinophils # 0.3, Basophils # 0.0, PUBS MCHC 33.5, MCH 31.8 H 07/16/17 2343: Sodium 131 L, Potassium 4.1, Chloride 100, Carbon Dioxide 26, BUN 43 H, Creatinine 1.8 H, Estimated Creat Clear 42 L, Estimated GFR (MDRD) 37, Glucose 127 H, Calcium 7.9 L, Total Bilirubin 0.5, AST 18, ALT 47, Alkaline Phosphatase 67, Total Protein 5.9 L, Albumin 3.0 L, Globulin 2.9, Albumin/ Globulin Ratio 1.0 L, Lipase 151, WBC 11.1 H, RBC 3.48 L, Hgb 11.1 L, Hct 33.8 L, MCV 97.0, RDW 14.5, Plt Count 260, MPV 7.7, Gran % 70.0, Gran # 7.8, Lymphocytes % 16.6, Monocytes % 9.5 H, Eosinophils % 3.5, Basophils % 0.4, Lymphocytes # 1.9, Monocytes # 1.1 H, Eosinophils # 0.4, Basophils # 0.1, PUBS MCHC 32.8, MCH 31.8 H 07/16/17 2043: POC Glucose 128 H 07/16/17 1737: POC Glucose 127 H 07/16/17 1508: Hgb 11.2 L, Hct 33.2 L 07/16/17 1112: POC Glucose 116 H Assessment/Plan Problem List 1. Epigastric abdominal pain 2. Guaiac positive stools Patient condition Stable This inpt stay is expected to cross 2 MNs from start of care Yes at 0704
[2017-07-17 07:47] VITALS: BP 104/64
[2017-07-17 07:50] VITALS: BP 104/64
--- NOTE | 2017-07-17 08:33 | SURGEON PROGRESS NOTE ---
See Addendum Subjective data Subjective data: Some increased abdominal pain and distention over the past 24 hours. He describes the pain as "crampy". Initially the pain was "kind of everywhere". Currently, the pain is mostly in the lower abdomen. He continues to pass flatus. He has not had a bowel movement "in the last few days". He did have one episode of emesis that was "not bloody" yesterday. Objective data Vitals,I&O,and Labs: Vital signs, intake and output,and available lab data for the last 24 hours is as noted below. Vital Signs Date Time Temp Pulse Resp B/P Pulse O2 O2 Flow FiO2 Ox Delivery Rate 07/17 0750 98.1 86 20 104/64 95 07/17 0747 98.1 86 20 104/64 95 ROOM AIR 07/17 0441 98.1 76 20 98/62 96 ROOM AIR 07/16 2200 97.9 80 20 92/51 95 07/16 1944 97.9 80 20 92/51 95 ROOM AIR 07/16 1741 20 07/16 1514 97.8 79 20 109/59 98 ROOM AIR 07/16 1200 98.2 72 20 99/50 96 ROOM AIR 07/16 1100 97.8 79 20 109/59 98 07/16 0921 20 07/16 1500 07/16 2300 07/17 0700 Intake Total 120 240 Output Total 1000 1000 850 Balance -880 -760 -850 Intake, Oral 120 240 Output, Urine 1000 1000 850 Laboratory Tests Test Result Date Time Chemistry Sodium (mmoL/L) 140 07/17 07 Potassium (mmoL/L) 4.5 07/17 738 Chloride (mmoL/L) 105 07/17 0738 Carbon Dioxide (mmoL/L) 25 07/17 07 BUN (mg/dL) 37 07/17 07 Creatinine (mg/dL) 1.7 07/17 738 Estimated Creat Clear (ML/MIN) 44 07/17 738 Estimated GFR (MDRD) (ML/MIN) 40 07/17 07 Glucose (mg/dL) 110 07/17 07 POC Glucose (mg/dl) 113 07/17 0628 Calcium (mg/dL) 7.9 07/17 738 Total Bilirubin (mg/dL) 0.5 07/16 2343 AST (U/L) 18 07/16 2343 ALT (U/L) 47 07/16 2343 Alkaline Phosphatase (U/L) 67 07/16 2343 Creatine Kinase (U/L) 107 07/15 1700 CK-MB (CK-2) Rel Index (U/L) 3.6 07/15 1700 CK and CKMB Interp (ng/mL) 3.8 07/15 1700 Troponin I (ng/mL) 0.02 07/15 1700 Total Protein (gm/dL) 5.9 07/16 2343 Albumin (gm/dL) 3.0 07/16 2343 Globulin (gm/dL) 2.9 07/16 2343 Albumin/Globulin Ratio 1.0 07/16 2343 Lipase (U/L) 151 07/16 2343 Hematology WBC (K/MM3) 9.7 07/17 605 RBC (M/mm3) 3.46 07/17 605 Hgb (g/dL) 11.0 07/17 605 Hct (%) 32.8 07/17 605 MCV (fl) 95.0 07/17 605 RDW (%) 14.5 07/17 605 Plt Count (K/mm3) 243 07/17 605 MPV (fl) 7.9 07/17 605 Gran % (%) 61.9 07/17 605 Gran # (K/mm3) 6.0 07/17 605 Lymphocytes % (%) 20.0 07/17 605 Monocytes % (%) 14.4 07/17 605 Eosinophils % (%) 3.4 07/17 605 Basophils % (%) 0.3 07/17 605 Lymphocytes # (K/mm3) 1.9 07/17 605 Monocytes # (K/mm3) 1.4 07/17 605 Eosinophils # (K/mm3) 0.3 07/17 605 Basophils # (K/MM3) 0.0 07/17 605 PUBS MCHC (g/dl) 33.5 07/17 605 Immunology MCH (pg) 31.8 07/17 605 Other Body Source Stool Occult Blood POSITIVE 07/15 1725 Urines Urine Color RED 07/15 1910 Urine Appearance SL CLOUDY 07/15 1910 Urine pH 6.5 07/15 1910 Ur Specific [place] 1.010 07/15 1910 Urine Protein (mg/dL) 2+ 11/17 1910 Urine Ketones (mg/dL) NEGATIVE 07/15 1910 Urine Blood 3+ 07/15 1910 Urine Nitrate POSITIVE 07/15 1910 Urine Bilirubin NEGATIVE 07/15 1910 Urine Urobilinogen (E.U./dL) 1.0 07/15 1910 Ur Leukocyte Esterase 1+ 07/15 1910 Urine RBC (rbc/hpf) 20-50 07/15 1910 Urine WBC (wbc/hpf) OCC 07/15 1910 Ur Squamous Epith Cells (#/hpf) NONE 07/15 1910 Urine Bacteria NONE 07/15 1910 Urine Glucose TRACE 07/15 1910 Assessment findings Assessment Exam General appearance: no acute distress Cardiovascular: regular rate & rhythm Respiratory: no respiratory distress ABD: soft (mild to mod dist and TTP) Patient plan Diagnoses: UGI bleed - no sign of ongoing blood loss Abdominal pain and distention (continuing to pass flatus) - likely secondary to cathartic action of blood creating "crampy pain" Plan: continue current care as per PCP Additional data: close monitoring for signs of obstruction or infection unless required more urgently...EGD planned for 07/20 at 7:30AM at 0833
--- NOTE | 2017-07-17 11:20 | RADIOLOGY REPORT PS360 ---
ABD ACUTE(MUL VIEWS)#2 at 7:47 AM Ordering Physician: Kendall Richard MD Patient Age: 71 years: Male HISTORY: abd. pain and distension, comparison film TECHNIQUE: Upright chest with flat and upright views abdomen. COMPARISON :Previous acute abdominal series earlier today just after midnight 12:[address] abdomen pelvis 07/15/2017 and upright portable chest 07/15/2017. FINDINGS . Upright chest.: Lungs clear with no focal pneumonia. No free air beneath the diaphragm. Question, suggest an some minor blunting towards right CP which could reflect scant pleural fluid., Or atelectasis here. Flat and upright views of abdomen.: No bowel dilatation. No obstruction. No free air. No acute findings. . Moderate stool throughout the colon most evident at right & transverse colon through to the splenic flexure. Minimal stool & gas throughout descending colon and rectosigmoid. Small bowel. No air-fluid levels scant small bowel gas evident. Decompressed stomach. As scattered calcifications medial to right and left kidney observed. Appear to primarily renal vascular calcifications based on prior CTS. Also vascular calcifications at the right left iliac vessels pelvic basin noted. Degenerative changes throughout spine. As well as left hip greater than right IMPRESSION--------- Nonspecific/bowel gas pattern. No bowel dilatation or obstruction. No significant air-fluid levels Moderate solid stool most evident at right & transverse colon;.. Only question minor air-fluid levels region of cecum or terminal ileum on final review. No free air. Slight blunting right CP noted today which may reflect minimal atelectasis, vs scant pleural effusion
[2017-07-17 14:19] LABS: HEMOGLOBIN 11.1 g/dL (14.1-18.0)
--- NOTE | 2017-07-17 14:56 | RADIOLOGY REPORT PS360 ---
ABD ACUTE(MUL VIEWS) Ordering Physician: Kendall Richard MD Patient Age: 71 years: Male HISTORY: distended abd abdominal pain TECHNIQUE: Upright chest with flat and upright views of abdomen radiograph COMPARISON :. . concomitant CT abdomen pelvis 07/15/[address] abdomen June 01, 2017 FINDINGS . Upright chest.: Lungs well expanded and clear with nothing definitely acute.. No free air beneath the diaphragm. CP angle sharp clear. Flat and upright views of abdomen.: No bowel dilatation. No obstruction. No free air. No significant air-fluid levels. . . Moderate stool throughout the right colon. & hepatic flexure Minimal stool and gas throughout the descending colon and rectosigmoid. No bowel dilatation or obstruction Small bowel. No air-fluid levels scant small bowel gas evident. . Moderate fluid filled stomach on today's study. Very faint calcifications medial to right and left kidney observed. -Appear to primarily renal vascular calcifications based on prior CT abdomen studies . Also vascular calcifications at the right left iliac vessels pelvic basin noted. Degenerative changes throughout spine. Degenerative hypertrophic changes at left hip greater than right IMPRESSION--------- Nonspecific/bowel gas pattern. No bowel dilatation or obstruction. No significant air-fluid levels Moderate solid stool throughout right colon and proximal transverse colon... . Lungs clear no active disease. No free air beneath diaphragm
[2017-07-17 15:47] VITALS: BP 111/63
[2017-07-17 20:22] VITALS: BP 132/65
[2017-07-17 21:00] VITALS: BP 132/65
[2017-07-18 04:19] VITALS: BP 98/47
[2017-07-18 06:47] LABS: HEMOGLOBIN 10.5 g/dL (14.1-18.0); LYMPH # 1.9 K/mm3 (0.7-4.5); LYMPH % 20.7 % (10-50)
--- NOTE | 2017-07-18 07:05 | ACUTE CARE PROGRESS NOTE (QUA) ---
Progress Notes Subjective Date 07/18/17 Time 0702 Note Patient had 2 small bowel movements in the last 24 hours both described as hard and black in color. Patient had a fleets enema and soapsuds enemas. He continues to complain of some crampy abdominal pain. He is in no distress. Lungs are clear. Heart has regular rate and rhythm. Abdomen is mildly distended but soft without tenderness. Hemoglobin is decreased slightly to 10.5 Repeat H and H this afternoon. Continue sucralfate and Protonix. Patient has not ever had a colonoscopy. He is having lots of lower gastrointestinal problems. I will discuss with surgery possibility of doing simultaneous EGD and colonoscopy this coming Tuesday. Should H and H remained stable the patient would be possible discharge later this afternoon. We will continue to try to aid the patient with bowel movements. Objective Findings Last VS-Temp:97.7 B/P:98/47 Pulse:78 Resp:20 SaO2:98 ROOM AIR Last weight lbs:178 oz:6 K.910 Method:Bed Scales Laboratory Tests 07/18/17 0610: Sodium 141, Potassium 4.9, Chloride 108 H, Carbon Dioxide 29, BUN 25 H, Creatinine 1.5 H, Estimated Creat Clear 50, Estimated GFR (MDRD) 46, Glucose 92 , Calcium 8.3 L, WBC 9.2, RBC 3.32 L, Hgb 10.5 L, Hct 32.1 L, MCV 96.5, RDW 14.3, Plt Count 241, MPV 7.9, Gran % 65.7, Gran # 6.0, Lymphocytes % 20.7, Monocytes % 10.5 H, Eosinophils % 2.8, Basophils % 0.3, Lymphocytes # 1.9, Monocytes # 1.0, Eosinophils # 0.3, Basophils # 0.0, PUBS MCHC 32.8, MCH 31.6 H 07/18/17 0607: POC Glucose 96 07/17/17 2023: POC Glucose 119 H 07/17/17 1626: POC Glucose 106 07/17/17 1413: Hgb 11.1 L, Hct 33.5 L 07/17/17 1142: POC Glucose 121 H 07/17/17 0738: Sodium 140, Potassium 4.5, Chloride 105, Carbon Dioxide 25, BUN 37 H, Creatinine 1.7 H, Estimated Creat Clear 44 L, Estimated GFR (MDRD) 40, Glucose 110 H, Calcium 7.9 L Assessment/Plan Problem List 1. Epigastric abdominal pain 2. Guaiac positive stools 3. Constipation Patient condition Stable Plan: continue current care This inpt stay is expected to cross 2 MNs from start of care Yes at 0704
--- NOTE | 2017-07-18 07:33 | SURGEON PROGRESS NOTE ---
Subjective data Subjective data: Feels "rough" and "bloated". Less pain. Objective data Vitals,I&O,and Labs: Vital signs, intake and output,and available lab data for the last 24 hours is as noted below. Vital Signs Date Time Temp Pulse Resp B/P Pulse O2 O2 Flow FiO2 Ox Delivery Rate 07/18 0419 97.7 78 20 98/47 98 ROOM AIR 07/17 2100 98.2 79 20 132/65 97 07/17 2022 98.2 79 20 132/65 97 ROOM AIR 07/17 1547 98.7 82 20 111/63 96 ROOM AIR 07/17 1446 20 07/17 0750 98.1 86 20 104/64 95 07/17 0747 98.1 86 20 104/64 95 ROOM AIR 07/17 1500 07/17 2300 07/18 0700 Intake Total 720 760 Output Total 850 1600 Balance Intake, Oral 720 760 Output, Stool Output, Urine 850 1600 Patient 80.91 kg Weight Laboratory Tests Test Result Date Time Chemistry Sodium (mmoL/L) 141 07/18 0610 Potassium (mmoL/L) 4.9 07/18 0610 Chloride (mmoL/L) 108 07/18 0610 Carbon Dioxide (mmoL/L) 29 07/18 0610 BUN (mg/dL) 25 07/18 0610 Creatinine (mg/dL) 1.5 07/18 0610 Estimated Creat Clear (ML/MIN) 50 07/18 0610 Estimated GFR (MDRD) (ML/MIN) 46 07/18 0610 Glucose (mg/dL) 92 07/18 0610 POC Glucose (mg/dl) 96 07/18 0607 Calcium (mg/dL) 8.3 07/18 06 Total Bilirubin (mg/dL) 0.5 07/16 2343 AST (U/L) 18 07/16 2343 ALT (U/L) 47 07/16 234 Alkaline Phosphatase (U/L) 67 07/16 2343 Creatine Kinase (U/L) 107 07/15 170 CK-MB (CK-2) Rel Index (U/L) 3.6 07/15 170 CK and CKMB Interp (ng/mL) 3.8 07/15 170 Troponin I (ng/mL) 0.02 07/15 170 Total Protein (gm/dL) 5.9 07/16 2343 Albumin (gm/dL) 3.0 07/16 2343 Globulin (gm/dL) 2.9 07/16 2343 Albumin/Globulin Ratio 1.0 07/16 2343 Lipase (U/L) 151 07/16 2343 Hematology WBC (K/MM3) 9.2 07/18 610 RBC (M/mm3) 3.32 07/18 610 Hgb (g/dL) 10.5 07/18 610 Hct (%) 32.1 07/18 610 MCV (fl) 96.5 07/18 610 RDW (%) 14.3 07/18 610 Plt Count (K/mm3) 241 07/18 610 MPV (fl) 7.9 07/18 610 Gran % (%) 65.7 07/18 610 Gran # (K/mm3) 6.0 07/18 610 Lymphocytes % (%) 20.7 07/18 610 Monocytes % (%) 10.5 07/18 610 Eosinophils % (%) 2.8 07/18 610 Basophils % (%) 0.3 07/18 610 Lymphocytes # (K/mm3) 1.9 07/18 610 Monocytes # (K/mm3) 1.0 07/18 610 Eosinophils # (K/mm3) 0.3 07/18 610 Basophils # (K/MM3) 0.0 07/18 610 PUBS MCHC (g/dl) 32.8 07/18 610 Immunology MCH (pg) 31.6 07/18 610 Other Body Source Stool Occult Blood POSITIVE 07/15 172 Urines Urine Color RED 07/15 1910 Urine Appearance SL CLOUDY 07/15 1910 Urine pH 6.5 07/15 1910 Ur Specific [place] 1.010 07/15 1910 Urine Protein (mg/dL) 2+ 07/15 1910 Urine Ketones (mg/dL) NEGATIVE 07/15 1910 Urine Blood 3+ 07/15 1910 Urine Nitrate POSITIVE 07/15 1910 Urine Bilirubin NEGATIVE 07/15 1910 Urine Urobilinogen (E.U./dL) 1.0 07/15 1910 Ur Leukocyte Esterase 1+ 07/15 1910 Urine RBC (rbc/hpf) 20-50 07/15 1910 Urine WBC (wbc/hpf) OCC 11/17 1910 Ur Squamous Epith Cells (#/hpf) NONE 07/15 1910 Urine Bacteria NONE 07/15 1910 Urine Glucose TRACE 07/15 1910 Assessment findings Assessment Exam General appearance: no acute distress Cardiovascular: regular rate & rhythm Respiratory: no respiratory distress ABD: soft (somewhat distended) Patient plan Diagnoses: GI bleed - stable Chronic constipation Plan: continue PPI and Carafate, "slow" bowel prep, mineral oil and enemas Additional data: Likely EGD/Colonoscopy on 07/20 at 0731
[2017-07-18 08:00] VITALS: BP 106/59
[2017-07-18 09:05] VITALS: BP 106/59
[2017-07-18 14:25] LABS: HEMOGLOBIN 10.8 g/dL (14.1-18.0)
[2017-07-18 16:19] VITALS: BP 111/64
[2017-07-18 19:49] VITALS: BP 148/74
[2017-07-18 21:00] VITALS: BP 148/74
[2017-07-19 04:00] VITALS: BP 122/59
--- NOTE | 2017-07-19 06:46 | SURGEON PROGRESS NOTE ---
Subjective data Subjective data: Some "crampy soreness", but better after BMs. He states that he felt a "little better" yesterday morning and that he feels "even a little bit better" this AM. He states that he is "not normal yet". Objective data Vitals,I&O,and Labs: Vital signs, intake and output,and available lab data for the last 24 hours is as noted below. Vital Signs Date Time Temp Pulse Resp B/P Pulse O2 O2 Flow FiO2 Ox Delivery Rate 07/19 0400 98.1 80 20 122/59 99 ROOM AIR 07/18 2100 97.5 79 16 148/74 97 07/18 1949 97.5 79 16 148/74 97 ROOM AIR 07/18 1619 97.7 80 18 111/64 97 ROOM AIR 07/18 0905 97.8 76 18 106/59 98 07/18 0800 97.8 76 18 106/59 98 ROOM AIR 07/18 1500 07/18 2300 07/19 0700 Intake Total 863.4 485 285 Output Total 1500 1100 Balance 863.4 -1015 -815 Intake, IV 23.4 245 285 Intake, Oral 840 240 Output, Stool Output, Urine 1500 1100 Laboratory Tests Test Result Date Time Chemistry Sodium (mmoL/L) 141 07/18 0610 Potassium (mmoL/L) 4.9 07/18 0610 Chloride (mmoL/L) 108 07/18 0610 Carbon Dioxide (mmoL/L) 29 07/18 0610 BUN (mg/dL) 25 07/18 0610 Creatinine (mg/dL) 1.5 07/18 06 Estimated Creat Clear (ML/MIN) 50 07/18 0610 Estimated GFR (MDRD) (ML/MIN) 46 07/18 0610 Glucose (mg/dL) 92 07/18 0610 POC Glucose (mg/dl) 82 07/19 0604 Calcium (mg/dL) 8.3 07/18 0610 Total Bilirubin (mg/dL) 0.5 07/16 2343 AST (U/L) 18 07/16 2343 ALT (U/L) 47 07/16 2343 Alkaline Phosphatase (U/L) 67 07/16 2343 Creatine Kinase (U/L) 107 07/15 1700 CK-MB (CK-2) Rel Index (U/L) 3.6 07/15 1700 CK and CKMB Interp (ng/mL) 3.8 07/15 170 Troponin I (ng/mL) 0.02 07/15 170 Total Protein (gm/dL) 5.9 07/16 2343 Albumin (gm/dL) 3.0 07/16 2343 Globulin (gm/dL) 2.9 07/16 2343 Albumin/Globulin Ratio 1.0 07/16 2343 Lipase (U/L) 151 07/16 2343 Hematology WBC (K/MM3) 9.2 07/18 610 RBC (M/mm3) 3.32 07/18 610 Hgb (g/dL) 10.8 07/18 141 Hct (%) 32.4 07/18 141 MCV (fl) 96.5 07/18 610 RDW (%) 14.3 07/18 610 Plt Count (K/mm3) 241 07/18 610 MPV (fl) 7.9 07/18 610 Gran % (%) 65.7 07/18 610 Gran # (K/mm3) 6.0 07/18 610 Lymphocytes % (%) 20.7 07/18 610 Monocytes % (%) 10.5 07/18 610 Eosinophils % (%) 2.8 07/18 610 Basophils % (%) 0.3 07/18 610 Lymphocytes # (K/mm3) 1.9 07/18 610 Monocytes # (K/mm3) 1.0 07/18 610 Eosinophils # (K/mm3) 0.3 07/18 610 Basophils # (K/MM3) 0.0 07/18 610 PUBS MCHC (g/dl) 32.8 07/18 610 Immunology MCH (pg) 31.6 07/18 610 Other Body Source Stool Occult Blood POSITIVE 07/15 1725 Urines Urine Color RED 07/15 1910 Urine Appearance SL CLOUDY 07/15 1910 Urine pH 6.5 07/15 1910 Ur Specific [place] 1.010 07/15 1910 Urine Protein (mg/dL) 2+ 07/15 1910 Urine Ketones (mg/dL) NEGATIVE 07/15 1910 Urine Blood 3+ 07/15 1910 Urine Nitrate POSITIVE 07/15 1910 Urine Bilirubin NEGATIVE 07/15 1910 Urine Urobilinogen (E.U./dL) 1.0 07/15 1910 Ur Leukocyte Esterase 1+ 07/15 1910 Urine RBC (rbc/hpf) 20-50 07/15 1910 Urine WBC (wbc/hpf) OCC 07/15 1910 Ur Squamous Epith Cells (#/hpf) NONE 07/15 1910 Urine Bacteria NONE 07/15 1910 Urine Glucose TRACE 07/15 1910 Assessment findings Assessment Exam General appearance: no acute distress Cardiovascular: regular rate & rhythm Respiratory: no respiratory distress ABD: soft (less TTP) Patient plan Diagnoses: 1) GI bleed - likely UGI source with no sign of ongoin loss 2) Abdominal pain - likely secondary to combination of distal constipation and proximal "thin stool/melena" with concomitant "crampiness" Plan: prep today, EGD/Cscope in AM at 0646
[2017-07-19 07:33] VITALS: BP 98/55
--- NOTE | 2017-07-19 07:42 | ACUTE CARE PROGRESS NOTE (QUA) ---
Progress Notes Subjective Date 07/19/17 Time 0739 Note Patient has had 4 bowel movements in the last 24 hours. Initially bowel movements were very hard but they have become loose and watery and his last bowel movement earlier this morning included some blood. Patient states after a bowel movement he usually feels better and abdomen will be less distended. As time progresses his abdomen will come more distended again. Patient looks comfortable. ENT exam is unremarkable. Lungs are clear. Heart has regular rate and rhythm. Abdomen is distended with increased tympany but no tenderness. Bowel sounds are present. H and H stable Continue clear liquids today and bowel prep beginning later this evening. Patient will have an upper endoscopy as well as colonoscopy tomorrow. Objective Findings Last VS-Temp:98.3 B/P:98/55 Pulse:82 Resp:18 SaO2:91 ROOM AIR Last weight lbs:178 oz:6 K.910 Method:Bed Scales Laboratory Tests 07/19/17 0604: POC Glucose 82 07/18/17 2035: POC Glucose 106 07/18/17 1710: POC Glucose 85 07/18/17 1410: Hgb 10.8 L, Hct 32.4 L 07/18/17 1202: POC Glucose 108 Assessment/Plan Problem List 1. Epigastric abdominal pain 2. Guaiac positive stools 3. Constipation Patient condition Stable Plan: continue current care This inpt stay is expected to cross 2 MNs from start of care Yes at 0741
[2017-07-19 08:15] VITALS: BP 98/55
[2017-07-19 16:51] VITALS: BP 126/75
[2017-07-19 19:40] VITALS: BP 139/55
[2017-07-19 21:30] VITALS: BP 139/55
[2017-07-20] VITALS (12 sets, daily range): BP systolic 110–166; BP diastolic 57–86
--- NOTE | 2017-07-20 06:55 | ACUTE CARE PROGRESS NOTE (QUA) ---
Progress Notes Subjective Date 07/20/17 Time 0654 Note Patient is scheduled for EGD and colonoscopy this morning. Bowel prep has improved the patient's abdominal distention. Patient admits he's hungry for more than liquids. He is awake and alert. Abdomen is less distended. He still has increased tympany in the LEFT upper quadrant. Bowel sounds are present. Abdomen is nontender. Lungs are clear. Heart has regular rate and rhythm. EGD and colonoscopy today. Once procedures or finish disposition will be made. Objective Findings Last VS-Temp:97.8 B/P:129/62 Pulse:70 Resp:18 SaO2:96 ROOM AIR Last weight lbs:178 oz:5 K.881 Method:Bed Scales Laboratory Tests 07/19/17 2055: POC Glucose 99 07/19/17 1631: POC Glucose 129 H Assessment/Plan Problem List 1. Epigastric abdominal pain 2. Guaiac positive stools 3. Constipation Patient condition Stable This inpt stay is expected to cross 2 MNs from start of care Yes at 0655
--- NOTE | 2017-07-20 07:19 | SURGEON PROGRESS NOTE ---
Subjective data Subjective data: Feels "better". Tolerated bowel prep. Objective data Vitals,I&O,and Labs: Vital signs, intake and output,and available lab data for the last 24 hours is as noted below. Vital Signs Date Time Temp Pulse Resp B/P Pulse O2 O2 Flow FiO2 Ox Delivery Rate 07/20 0515 18 07/20 0430 97.8 70 18 129/62 96 ROOM AIR 07/19 2130 98.0 77 20 139/55 100 07/19 1940 98.0 77 20 139/55 100 ROOM AIR 07/19 1651 97.4 71 20 126/75 98 ROOM AIR 07/19 0815 98.3 82 18 98/55 91 07/19 0733 98.3 82 18 98/55 91 ROOM AIR 07/19 1500 07/19 2300 07/20 0700 Intake Total 480 960 740 Output Total 500 1200 Balance 480 460 -460 Intake, IV 20 Intake, Oral 480 960 720 Output, Stool Output, Urine 500 1200 Patient 80.881 kg Weight Laboratory Tests Test Result Date Time Chemistry Sodium (mmoL/L) 141 07/18 0610 Potassium (mmoL/L) 4.9 07/18 0610 Chloride (mmoL/L) 108 07/18 0610 Carbon Dioxide (mmoL/L) 29 07/18 0610 BUN (mg/dL) 25 07/18 0610 Creatinine (mg/dL) 1.5 07/18 06 Estimated Creat Clear (ML/MIN) 50 07/18 06 Estimated GFR (MDRD) (ML/MIN) 46 07/18 0610 Glucose (mg/dL) 92 07/18 0610 POC Glucose (mg/dl) 99 07/19 2055 Calcium (mg/dL) 8.3 07/18 06 Total Bilirubin (mg/dL) 0.5 07/16 234 AST (U/L) 18 07/16 2343 ALT (U/L) 47 07/16 2343 Alkaline Phosphatase (U/L) 67 07/16 2343 Creatine Kinase (U/L) 107 07/15 1700 CK-MB (CK-2) Rel Index (U/L) 3.6 07/15 1700 CK and CKMB Interp (ng/mL) 3.8 07/15 1700 Troponin I (ng/mL) 0.02 07/15 1700 Total Protein (gm/dL) 5.9 07/16 2343 Albumin (gm/dL) 3.0 07/16 2343 Globulin (gm/dL) 2.9 07/16 2343 Albumin/Globulin Ratio 1.0 07/16 2343 Lipase (U/L) 151 07/16 2343 Hematology WBC (K/MM3) 9.2 07/18 610 RBC (M/mm3) 3.32 07/18 610 Hgb (g/dL) 10.8 07/18 141 Hct (%) 32.4 07/18 141 MCV (fl) 96.5 07/18 610 RDW (%) 14.3 07/18 610 Plt Count (K/mm3) 241 07/18 610 MPV (fl) 7.9 07/18 610 Gran % (%) 65.7 07/18 610 Gran # (K/mm3) 6.0 07/18 610 Lymphocytes % (%) 20.7 07/18 610 Monocytes % (%) 10.5 07/18 610 Eosinophils % (%) 2.8 07/18 610 Basophils % (%) 0.3 07/18 610 Lymphocytes # (K/mm3) 1.9 07/18 610 Monocytes # (K/mm3) 1.0 07/18 610 Eosinophils # (K/mm3) 0.3 07/18 610 Basophils # (K/MM3) 0.0 07/18 610 PUBS MCHC (g/dl) 32.8 07/18 610 Immunology MCH (pg) 31.6 07/18 610 Other Body Source Stool Occult Blood POSITIVE 07/15 1725 Urines Urine Color RED 07/15 1910 Urine Appearance SL CLOUDY 07/15 1910 Urine pH 6.5 07/15 1910 Ur Specific [place] 1.010 07/15 1910 Urine Protein (mg/dL) 2+ 07/15 1910 Urine Ketones (mg/dL) NEGATIVE 07/15 1910 Urine Blood 3+ 07/15 1910 Urine Nitrate POSITIVE 07/15 1910 Urine Bilirubin NEGATIVE 07/15 1910 Urine Urobilinogen (E.U./dL) 1.0 07/15 1910 Ur Leukocyte Esterase 1+ 07/15 1910 Urine RBC (rbc/hpf) 20-50 07/15 1910 Urine WBC (wbc/hpf) OCC 07/15 1910 Ur Squamous Epith Cells (#/hpf) NONE 07/15 1910 Urine Bacteria NONE 07/15 1910 Urine Glucose TRACE 07/15 1910 Assessment findings Assessment Exam General appearance: no acute distress Cardiovascular: regular rate & rhythm Respiratory: no respiratory distress ABD: soft Patient plan Diagnoses: UGI bleed - stable Constipation Plan: EGD/cscope this AM at 0718
--- NOTE | 2017-07-20 08:47 | Operative Note ---
Surgeon/Diagnoses Surgeon/Production Estimator(s) Date of procedure: 07/20/17 Surgeon: MD Nuria Cornell Diagnoses Pre-op diagnosis: Upper gastrointestinal hemorrhage Constipation Need for screening colonoscopy Post-op diagnosis Same as preoperative diagnoses, with the addition of the following: Small sliding hiatal hernia Patchy gastritis Focal duodenitis Colon polyps Focal colitis and shallow ulceration Hemorrhoids Mild scattered diverticulosis Procedure Procedure Procedure: Esophagogastroduodenoscopy Colonoscopy with biopsy and polypectomy by means other than snare (biopsy forceps) Indications: SARAH CAMACHO is a 71 year-old Male with a history of upper gastrointestinal hemorrhage, chronic constipation, and need for screening colonoscopy. Findings: Gastroesophageal junction at 40 cm Small sliding hiatal hernia Focal inflammation at gastroesophageal junction Patchy mild to moderate gastritis Focal duodenitis (possible site of recent ulcer was signs of fairly complete healing) Bowel preparation ultimately fair Moderate tortuosity Significant colonic spasticity Internal and external hemorrhoid/cushions with no active bleeding or thrombosis Small ulceration at 45 cm Linear ulcerations 40 cm (area tattooed) adjacent polyps at 20 cm Shallow ulcerations of rectum Procedure Description: After informed consent was obtained, the patient was taken to the endoscopy suite. IV sedation ensued after he was transferred to the LEFT lateral decubitus position. The gastroscope was advanced. The gastroesophageal junction was at 40 cm. The stomach was entered. Mild to moderate patchy gastritis was noted. Retroflexion revealed a very small sliding hiatal hernia. Antral biopsies were obtained. Focal inflammation the gastroesophageal junction was also biopsied at the time of gastroscope removal. The pylorus was intubated. A small focus of inflammation in possible slight of recently healed ulcer was noted. No sign of definitive ulceration was seen. The gastroscope was carefully removed. Digital rectal exam and inspection revealed hemorrhoidal cushions. No active bleeding or thrombosis was noted. The colonoscope was placed in position. The entire colon was evaluated. Bowel preparation was relatively fair with irrigation and suctioning used to improve visualization. Mild scattered diverticulosis was encountered. A small ulceration of 45 cm was biopsied. Omar ulcer at 40 cm was also biopsied and this area was tattooed for future evaluation. Adjacent polyps at 20 cm were excised with cold biopsy forceps. Small shallow rectal ulcerations were also noted and biopsies were obtained. The colonoscope was carefully removed and the patient was transferred to recovery. EBL (ml): 1 Anesthesia: IV sedation with 9 mg of Versed and 200 g of fentanyl Complications: No immediate Specimens: Antral biopsy Gastroesophageal junction biopsy Small ulceration 45 cm Linear ulcerations at 40 cm Adjacent polyps at 20 cm Rectal ulceration biopsies Disposition Disposition: Stable to recovery from where he will be transferred back to the floor. He will follow up in one week. Repeat colonoscopy is pending pathology but will likely be within one year secondary to need for reevaluation of areas of ulceration/ inflammation. Consideration of UGI/SBFT and consideration of capsule endoscopy warranted. at [id number]
--- NOTE | 2017-07-22 16:44 | Discharge Summary ---
Demographics Admit date: 07/16/17 Discharge date: 07/20/17 Discharge diagnoses Problem List 1. Epigastric abdominal pain 2. Guaiac positive stools 3. Constipation 4. CKD (chronic kidney disease) stage 3, GFR 30-59 ml/min 5. Enlarged prostate with lower urinary tract symptoms (LUTS) History of present illness History of present illness 71-year-old male presented to the emergency department with a 1-3 day history of burning sensation in the epigastrium that acutely worsened yesterday afternoon after the patient had eaten lunch. Patient's daughter tells me he has been taking several different medications and remedies to try to help with chronic constipation and this resulted in a bowel movement that was mixed with hard stool and water. However the stools were black in color. There was concern about leaving and patient was brought to the emergency department. Patient tells me after being treated in the emergency department his abdominal pain went away. Patient's stool was positive for blood. Hemoglobin was 12.2. Patient was admitted for serial H and H and surgical consult. ER physician did speak with Dr. Lyle on the day of admission. Patient continues to deny abdominal pain this morning. He has not had another bowel movement. Patient has underlying coronary artery disease and peripheral arterial disease for which he is on Effient and aspirin. Patient's interventions were in October of this year. Patient was admitted and surgical consultation was obtained. Initially decision was made to perform outpatient endoscopy. However, patient developed episodes of worsening abdominal pain with abdominal distention. Abdominal pain was crampy in nature. It was felt that the patient was experiencing some irritation of the gastrointestinal tract from blood. Patient developed significant abdominal distention and multiple abdominal films showed air within the bowels but no free air and no small bowel obstruction. Patient has a history of chronic constipation so he was treated with multiple fleets and soapsuds enemas. Each time the patient would have a bowel movement it would provide transient relief of the abdominal distention but this would soon recur. Patient never had a colonoscopy and due to his ongoing lower gastrointestinal problems decision was made to have both EGD and colonoscopy and this will be performed as an inpatient. Patient was kept on clears and on the underwent bowel prep. On the patient underwent upper endoscopy which did not reveal any ulcers. Colonoscopy did not reveal any masses. Refer to report for full details. Once patient's procedures were finished his diet was restarted and he went home later in the day on the . Patient will follow-up in my office in 5 days. He will need an upper gastrointestinal with small bowel follow-through as an outpatient. Await biopsy results from endoscopy and colonoscopy Medications Medications: Discharge meds are as noted. Follow up Follow up in office in: 5 DAYS with: Kendall Richard MD at [id number]
== END 2017-07-20 13:50 | disposition home or self-care (01) ==
LOC: ER 16:18 → 2ND 18:57
PROVIDERS: Emergency Medicine; Family Medicine; Surgery
PROC: 0DB78ZX Excision of Stomach, Pylorus, Via Natural or Artificial Opening Endoscopic, Diagnostic (ICD-10-PCS; 2017-07-20)
PROC: 0DBP8ZX Excision of Rectum, Via Natural or Artificial Opening Endoscopic, Diagnostic (ICD-10-PCS; 2017-07-20)
PROC: 0DBE8ZX Excision of Large Intestine, Via Natural or Artificial Opening Endoscopic, Diagnostic (ICD-10-PCS; 2017-07-20)
PROC: 0DB48ZX Excision of Esophagogastric Junction, Via Natural or Artificial Opening Endoscopic, Diagnostic (ICD-10-PCS; principal; 2017-07-20 07:30)
DX: R19.5 Other fecal abnormalities (principal); I25.10 Atherosclerotic heart disease of native coronary artery without angina pectoris; I73.9 Peripheral vascular disease, unspecified; I25.2 Old myocardial infarction; J44.9 Chronic obstructive pulmonary disease, unspecified; Z95.5 Presence of coronary angioplasty implant and graft; E78.5 Hyperlipidemia, unspecified; N40.0 Benign prostatic hyperplasia without lower urinary tract symptoms; R10.13 Epigastric pain; K59.00 Constipation, unspecified; K44.9 Diaphragmatic hernia without obstruction or gangrene; K29.80 Duodenitis without bleeding; K51.90 Ulcerative colitis, unspecified, without complications; K57.90 Diverticulosis of intestine, part unspecified, without perforation or abscess without bleeding; K64.8 Other hemorrhoids; K64.4 Residual hemorrhoidal skin tags; E11.22 Type 2 diabetes mellitus with diabetic chronic kidney disease; I12.9 Hypertensive chronic kidney disease with stage 1 through stage 4 chronic kidney disease, or unspecified chronic kidney disease; N18.3 Chronic kidney disease, stage 3 (moderate); I51.89 Other ill-defined heart diseases; D12.6 Benign neoplasm of colon, unspecified; K29.50 Unspecified chronic gastritis without bleeding; Z79.84 Long term (current) use of oral hypoglycemic drugs; Z83.3 Family history of diabetes mellitus; Z82.49 Family history of ischemic heart disease and other diseases of the circulatory system; Z83.49 Family history of other endocrine, nutritional and metabolic diseases; Z88.3 Allergy status to other anti-infective agents; Z88.5 Allergy status to narcotic agent; Z88.8 Allergy status to other drugs, medicaments and biological substances; Z79.82 Long term (current) use of aspirin; Z79.891 Long term (current) use of opiate analgesic; Z79.899 Other long term (current) drug therapy; Z87.891 Personal history of nicotine dependence; Z80.9 Family history of malignant neoplasm, unspecified
CPT/HCPCS: G0328; G0378; J2405

== ENCOUNTER → 2017-08-02 | Outpatient (CLI) | payer MEDICARE, MEDICAID ==
[~2017-08-02] MED LIST changes: +CARAFATE1 GM PO; +DEXILANT60 MG PO; +IPRATROPIUM BROM3 M1 IH
--- NOTE | 2017-08-02 12:14 | RADIOLOGY REPORT PS360 ---
UGI SERIES W/SMALL BOWEL HISTORY: GI BLEED ORDERING PHYSICIAN: JONATHAN CORNELL MD PATIENT AGE: 71 years COMPARISON: None FINDINGS: The esophagus, stomach, and duodenum have an unremarkable appearance. There is no evidence of hiatal hernia. No ulcer or mass evident. No mucosal abnormalities apparent. There is normal peristalsis. The duodenal C-loop is nondisplaced. There has been prior anterior cervical disc fusion at C3, C4, C5, and C6. This does not appear to be causing any impingement upon the esophagus. There is a moderate amount of gastroesophageal reflux and mild spasm of the esophagus with reflux. The small bowel has an unremarkable appearance. No obstructing lesions, masses, or mucosal abnormalities. FLUOROSCOPY TIME : 2 minutes and 2 seconds. IMPRESSION: 1. Gastroesophageal reflux with mild esophageal spasm. 2. Otherwise negative upper GI with small bowel follow-through
== END ==
LOC: RAD 09:00
DX: K92.2 Gastrointestinal hemorrhage, unspecified (principal)